=== PATIENT | male | born 1955 | race Caucasian/White ===

== ENCOUNTER → 2022-02-21 08:18 | Outpatient (CLI) | payer MEDICARE, SELFPAY ==
[2022-02-21 09:42] LABS: Chol/HDL Ratio 4.8 (1-3.5); Cholesterol 183 mg/dl (140-200); HDL Cholesterol 38 mg/dl (40-60); Triglycerides 115 mg/dl (30-150); VLDL Cholesterol 23 mg/dL (0-40)
[2022-02-21 09:53] LABS: Direct LDL Cholesterol 108.25 mg/dL (100-129)
== END ==
PROVIDERS: PCP Family Medicine Addiction Medicine; Visit Provider Nurse Practitioner
DX: E78.49 Other hyperlipidemia (principal)
CPT/HCPCS: 36415; 80061

== ENCOUNTER 2023-07-11 19:00 | Emergency (ER) | payer MEDICARE, SELFPAY ==
[2023-07-11 19:20] VITALS: BP 194/95; PULSE 77; RESP 18; TEMP 36.6; O2SAT 97; BMI 27.0
--- NOTE | 2023-07-11 19:26 | ED_ITS ---
Discharge Plan Disposition Patient Disposition: Home, Self-Care Condition: Good Prescriptions Prescriptions: New sulfamethoxazole-trimethoprim [Bactrim DS] 800-160 mg Tablet 1 tab PO BID 14 Days Qty: 28 0RF Referrals Follow up/Referrals: Dulce Isaacs MD [Primary Care Provider] - See instructions Activity Restrictions/Add. Instructions Additional Instructions/Restrictions: Drink plenty of fluids. Take tylenol or ibuprofen for pain or fever. Take the medications as directed. Follow up with your regular doctor. GO TO THE ER FOR ANY WORSENING SYMPTOMS We will culture the urine. That will tell what bacteria is causing your infection and which antibiotics will treat it best. Sometimes the first antibiotic we prescribe turns out to not work against different bacteria. So, make sure you follow up within 3 days if you are not getting better. Clinical Impressions Clinical Impression: UTI (urinary tract infection) Instructions Patient Instructions: Urinary Tract Infection, DI for Urinary Tract Infection (UTI) Discharge ED Provider: Zach Kelly [facility] General Stated complaint: possible kidney infection Time Seen by Provider: 07/11/23 19:26 History of Present Illness Provider Complaint: He states that he has had dysuria, urinary frequency, and low back pain since yesterday. He had a urinary procedure done around 2 months ago at , then he had to have an indwelling f/c for 30 days after that. Since then he has had a uti twice. He now states that his uti symptoms are back again. The last time was treated for a UTI was 1 month ago approx. He denies any fever/chills. Related Data Previous Rx's Medication Instructions Recorded sulfamethoxazole 800 1 tab PO BID 14 days #28 tabs 07/11/23 mg-trimethoprim 160 mg tablet (Bactrim DS) Allergies Allergy/AdvReac Type Severity Reaction Status Date / Time No Known Allergies Allergy Verified 07/11/23 19:42 [facility] Disclaimer: The information contained in this section may have been updated after the patient was seen, as this information can be updated by other users. Social History Smoking Status: Former smoker alcohol intake: never current occupational status: employed Travel in the last 8 weeks: None ROS Obtained: Yes All systems reviewed & no additional complaints except as documented Constitutional Constitutional: Denies chills and Denies fever(s) Eyes Eyes: Denies eye discharge ENT Ears, Nose, Mouth, and Throat: Denies dizziness, Denies otalgia and Denies sore throat Cardiovascular Cardiovascular: Denies chest pain Respiratory Respiratory: Denies shortness of breath, Denies chest congestion, Denies cough, Denies stridor and Denies wheezing Gastrointestinal Gastrointestingal: Denies nausea or vomiting Genitourinary Male Genitourinary: Reports as per HPI, Reports difficulty urinating, Denies testicular pain, Reports urinary frequency and Reports urinary hesitancy Musculoskeletal Musculoskeletal: Reports system reviewed and no additional complaints, except as documented and Denies arthralgias Integumentary/Breasts Skin/Breast: Denies rash Neurologic Neurologic: Denies dizziness and Denies paresthesias Allergic/Immunologic Allergic/Immunologic: Denies wheezing Physical Exam General General appearance: alert and in no apparent distress Head Head exam: atraumatic, normocephalic and normal inspection Eye Eye exam: Present normal appearance, PERRL and EOMI ENT ENT exam: Present normal exam, normal oropharynx, mucous membranes moist, TM's normal bilaterally and normal external ear exam Neck Neck exam: Present normal inspection, full ROM and trachea midline; Absent meningismus or lymphadenopathy Chest Chest inspection: Present normal inspection and symmetric chest wall rise; Absent tenderness Respiratory Respiratory exam: Present normal lung sounds bilaterally; Absent respiratory distress Cardiovascular Cardiovascular exam: Present regular rate and normal rhythm; Absent JVD Abdominal Exam Abdominal exam: Present soft and normal bowel sounds; Absent distention, tenderness or guarding Extremities Exam Extremities exam: Present normal inspection, full ROM and normal capillary refill; Absent calf tenderness Back Exam Back exam: Present normal inspection and full ROM; Absent tenderness, CVA tenderness (R), CVA tenderness (L), muscle spasm, paraspinal tenderness, vertebral tenderness, rashes, sciatic notch tenderness (R), sciatic notch tenderness (L), straight leg raise (R) or straight leg raise (L) Neurological Exam Neurological exam: Present alert and oriented X3 Psychiatric Psychiatric exam: Present normal affect and normal mood Skin Skin exam: Present warm, dry, intact and normal color Lymphatic Lymphatic Findings: no adenopathy Medical Decision Making Medical Records Medical records reviewed: No I reviewed the patient's medical records. Juanito Inquiry Pt receiving controlled substance: No Lab Data Lab results reviewed: Yes I reviewed the patient's lab results.
[2023-07-11 19:42] LABS: Apearance,Urine Clear (Clear); Color,Urine Dark Yellow (Yellow)
[2023-07-11 19:43] LABS: Bilirubin,Urine Negative (Negative); Blood, Urine Negative (Negative); Glucose,Urine (UA) Negative (Negative); Ketones,Urine Negative (Negative); Protein,Urine Negative (Negative); Specific Gravity, Urine 1.015 (1.005-1.030); UTC Leukocyte Esterase,Urine Negative (Negative); UTC Nitrate,Urine Positive (Negative); Urobilinogen,Urine 1 EU/dl (0.2)
[2023-07-11] MEDS: LIDOCAINE 1% 5ML PF VIAL IM (19:51)
[2023-07-11] MEDS: cefTRIAXone 1GM VIAL 1 GM IM (19:51)
[2023-07-11 20:20] VITALS: BP 194/95; PULSE 77; RESP 18; TEMP 36.6; O2SAT 97
== END 2023-07-11 20:20 | disposition home or self-care (01) ==
PROVIDERS: Emergency Provider Nurse Practitioner Family; PCP Family Medicine Addiction Medicine
DX: N39.0 Urinary tract infection, site not specified (principal); B96.89 Other specified bacterial agents as the cause of diseases classified elsewhere; M54.59 Other low back pain; Z87.891 Personal history of nicotine dependence
CPT/HCPCS: 81003; 87086; 96372; 99204; 99212; G0463; J0696

== ENCOUNTER 2024-08-26 21:01 | Emergency (ER) | payer MEDICARE, SELFPAY ==
[2024-08-26 21:04] VITALS: BP 166/95; PULSE 90; RESP 18; TEMP 36.6; O2SAT 100; BMI 25.8
[2024-08-26 21:13] LABS: Microscopic, Urine URINE MICROSCOPIC (MICROSCOPIC)
[2024-08-26 21:14] LABS: Blood, Urine Negative (Negative); Color,Urine YELLOW (Yellow); Glucose,Urine (UA) Negative (Negative); Ketones,Urine TRACE (Negative); Leukocyte Esterase,Urine TRACE (Negative); Nitrate,Urine Negative (Negative); PH,Urine 5.5 (5.0-8.5); Protein,Urine TRACE (Negative); Specific Gravity, Urine >= 1.030 (1.005-1.030); Urobilinogen,Urine 0.2 EU/dl (0.2)
[2024-08-26 21:26] LABS: Bilirubin,Urine 1+ (Negative)
[2024-08-26 21:27] LABS: Appearance,Urine Slightly Cloudy (Clear)
--- NOTE | 2024-08-26 21:36 | ED_ITS ---
Discharge Plan Disposition Patient Disposition: Home, Self-Care Condition: Good Prescriptions Prescriptions: New phenazopyridine 100 mg tablet 200 mg PO Q8H 5 Days Qty: 30 0RF lidocaine HCl [Lidocaine Viscous] 2 % solution 1 applic mucous membrane Q6H PRN (Reason: pain) Qty: 600 0RF No Action sulfamethoxazole-trimethoprim [Bactrim DS] 800-160 mg Tablet 1 tab PO BID 14 Days Qty: 28 0RF Referrals Follow up/Referrals: Dulce Isaacs MD [Primary Care Provider] - See instructions Activity Restrictions/Add. Instructions Additional Instructions/Restrictions: Up with urology and infectious disease. Talk to them about potential epididymo- orchitis and antibiotic treatment to address this, if they are concerned for this. Call your family doctor to establish care for this visit to the emergency department and schedule follow-up within 48 hours to ensure improvement. If you have any worsening of your condition or any other concerning signs or symptoms, return to the emergency department or your primary care doctor for further evaluation. Clinical Impressions Clinical Impression: Dysuria Instructions Patient Instructions: DI for Urinary Tract Infection (UTI), DI for Urinary Tract Infection in Children Print Language Print Language: Cymro Discharge ED Provider: Sam Varela General Adult HPI General Chief complaint: Urogenital-Male Stated complaint: Urinary Pain Time Seen by Provider: 08/26/24 21:09 Mode of Arrival: Ambulatory Source of Information: Patient Description of Symptoms (Recalled from ER Triage Doc. by RN): Pt presents with c/o burning with urination that started yesterday but worse today. pt states he feels like his left testicle is swollen History of Present Illness HPI narrative: Please note that above description of symptoms, in this electronic medical record under categorization of recalled from ER triage doctor by RN are reflective of an initial nursing assessment, however, is not reflective of my full history and physical exam that was personally taken and clarified. Consequentially, this preceding description of symptoms, which may include the patient's categorized chief complaint in the EMR, do not reflect my personal clinical impression, and the ultimate description of history of present illness and patient stated complaints should be deferred to this section of the note. Unless stated otherwise or congruent with this section of the note, additional signs, symptoms, or incongruence should be interpreted as inaccurate with my clinical impression. Related Data Previous Rx's ?Medication ?Instructions ?Recorded sulfamethoxazole 800 1 tab PO BID 14 days #28 tabs 07/11/23 mg-trimethoprim 160 mg tablet (Bactrim DS) lidocaine HCl 2 % mucosal solution 1 applic mucous membrane Q6H PRN 08/26/24 (Lidocaine Viscous) pain #600 mL phenazopyridine 100 mg tablet 200 mg (2 x 100 mg) PO Q8H 5 days 08/26/24 #30 tabs Allergies Allergy/AdvReac Type Severity Reaction Status Date / Time No Known Allergies Allergy Verified 07/11/23 19:42 [facility] Disclaimer: The information contained in this section may have been updated after the patient was seen, as this information can be updated by other users. Social History Smoking Status: Never smoker alcohol intake: never current occupational status: employed Travel in the last 8 weeks?: None Have you lived/traveled outside US in past 30 days?: No Contact w/someone who lives/traveled outside US past 30 days?: No Exposure to someone with infectious disease in past 14 days?: No Do you have a fever (greater than 100.4 F or 38 C)?: No Have you tested positive for COVID-19?: No Exposed to someone with COVID-19 in past 14 days?: No Do you have a sore throat?: No Do you have a cough?: No Do you have any weakness?: No Do you have any diarrhea?: No Are you experiencing any unusual bleeding?: No Do you have any muscle aches/pain?: No Do you have any abdominal pain?: No Are you experiencing loss of taste or smell?: No Other Medical History Have you received the Flu Vaccine for this season: No Have you received the Pneumonia Vaccine: No ROS Obtained: Yes All systems reviewed & no additional complaints except as documented Physical Exam General General appearance: alert Head Head exam: atraumatic and normocephalic Eye Eye exam: Present normal appearance, PERRL and EOMI Neck Neck exam: Present normal inspection, full ROM and trachea midline Respiratory Respiratory exam: Absent respiratory distress, wheezes, stridor, accessory muscle use or prolonged expiratory phase Cardiovascular Cardiovascular exam: Present other (Pulses equal symmetric in upper and lower extremities) Abdominal Exam Abdominal exam: Present soft; Absent distention, tenderness or pulsatile mass exam: Present testicular tenderness (Posteriorly overlying epididymis. Othe rwise normal. AP lie, symmetric in size to the right.) Extremities Exam Extremities exam: Absent edema Neurological Exam Neurological exam: Present alert, oriented X3 and CN II-XII intact; Absent motor sensory deficit Skin Skin exam: Present warm and dry; Absent diaphoresis or erythema Medical Decision Making Medical Records Medical records reviewed: Yes I reviewed the patient's medical records. Screening: Per USPSTF and CDC recommendations, given the prevalence of disease in our region, it is our hospital?s policy to screen for HIV and viral Hepatitis for all patients aged 18 and over and those with ongoing risk factors. Juanito Inquiry Pt receiving controlled substance: No Juanito was queried for this patient: No Vital Signs: 08/26/24 21:04 08/26/24 21:51 Temperature 97.9 F 97.9 F Temperature Source Temporal Artery Scan Oral Pulse Rate 84 Pulse Rate [Right] 90 Respiratory Rate 18 16 Blood Pressure 151/89 H Blood Pressure [Right Arm] 166/95 H Blood Pressure Mean [Right Arm] 118 Blood Pressure Source Automatic Cuff Blood Pressure Source [Right Arm] Automatic Cuff Blood Pressure Position Supine Blood Pressure Position [Right Arm] Sitting 02 Sat by Pulse Oximetry 100 Oxygen Delivery Method Room Air Room Air Lab Data Lab Results 08/26/24 21:08: Urine Color Yellow, Urine Appearance Slightly cloudy, Urine pH 5.5, Ur Specific [place] >= 1.030, Urine Protein Trace, Urine Glucose (UA) Negative, Urine Ketones Trace, Urine Blood Negative, Urine Nitrate Negative, Urine Bilirubin 1+ A, Urine Urobilinogen 0.2, Ur Leukocyte Esterase Trace, Urine RBC 10-20, Urine WBC Tntc, Ur Squamous Epith Cells 50-100, Urine Bacteria 4+, Urine Mucus 4+ Orders (Tests/Meds): ED MEDICATIONS Discontinued Medications Generic Name Dose Route Start Last Admin Trade Name Freq PRN Reason Stop Dose Admin Phenazopyridine HCl 200 mg 08/26/24 21:37 08/26/24 21:41 Phenazopyridine 200mg Tablet PO 08/26/24 21:38 200 mg ONCE ONE Administration ORDERS Category Date Time Status Urinalysis and Microscopic Stat Lab 08/26/24 21:08 Completed Urine Culture Stat Micro 08/26/24 21:08 Received Medical Decision Narrative: 68-year-old male history of chronic urologic complications, urethral stricture status post repair, which failed necessitating intermittent self- catheterization, chronic urinary tract infections presenting with urinary burning. States that it feels like his previous UTIs, but he is on daily fosfomycin per infectious disease and urology at [facility]. Does not remember when his last urinalysis showed, but states that all of his bacteria are usually sensitive to every antibiotic. No fevers or chills, flank pain, purulent drainage. He does state that since 2022, he said intermittent darkening and swelling of his left testicle, unknown if this is the cause or causing his pain. History was obtained via conversation with patient and , outside hospital chart review. On arrival, patient hemodynamically stable, alert, oriented x4, appropriate, GCS 15, moving all extremities spontaneously, pupils equal and reactive to light. Full physical exam performed and significant for clinically well-appearing male in no acute distress. exam normal with the exception of posterior left testicular tenderness. Differential includes UTI, urethritis, orchitis, prostatitis, among others. Patient given phenazopyridine 200 mg. Urinalysis obtained. On independent interpretation, yellow, cloudy, normal pH with no concerns for urinary tract infection. Contaminated sample with lots of squamous cells, white cells, bacteria, mucus, etc. Nitrate negative, trace leukocyte Estrace as it has been on outside hospital chart review. On reevaluation, patient toe resting as he was at baseline. Given patient presentation, workup, history, this most likely represents urethritis versus epididymo-orchitis. Recommended he follow-up with his family doctor, urologist, and infectious disease. Pyridium sent to the pharmacy. Because patient at baseline without signs or symptoms of clinical decompensation, deemed appropriate for discharge. Results were relayed to patient who voiced understanding and were agreeable to outpatient management and follow up. I discussed my clinical impression with patient and answered all questions. At this time, the evidence for any other entities in the differential is insufficient to warrant any further testing or ED observation. This was explained as well. Advisory was given that persistent or worsening symptoms require further evaluation. I confirmed the understanding of this discussion. Corporate Physical Security Supervisor disclaimer Much of this encounter note is an electronic irish moss operator spoken language to printed text. Electronic irish moss operator of the spoken language may permit errors. Although I have reviewed the note, some errors may still exist. Critical Care Critical Care Time Critical Care Time: No
[2024-08-26] MEDS: PHENAZOPYRIDINE 200MG TABLET 200 MG PO (21:41)
[2024-08-26 21:51] VITALS: BP 151/89; PULSE 84; RESP 16; TEMP 36.6; O2SAT 98
[2024-08-26 21:54] LABS: Bacteria,Urine 4+ /lpf; Mucus,Urine 4+ /lpf; Squamous Epithelial Cell,Urine 50-100 #/hpf (0-5); WBC,Urine TNTC #/hpf (0-3)
== END 2024-08-26 21:55 | disposition home or self-care (01) ==
PROVIDERS: Emergency Provider Emergency Medicine; PCP Family Medicine Addiction Medicine
DX: R30.0 Dysuria (principal)
CPT/HCPCS: 81001; 87086; 99284

== ENCOUNTER 2024-11-12 22:26 | Emergency (ER) | payer MEDICARE, SELFPAY ==
--- OUTSIDE RECORDS SUMMARY | 2024-11-12 22:38 | XMS_ITS | Encounter Summary ---
Author Organization [facility] Address [address] [place] [address] Care Team Providers Care Protector Plate Attacher Name Role Phone Dennise Isaacs MD Primary Care Provider [phone] Adwoa Oakes MD Unavailable [phone] Checo Diaz MD Unavailable [phone] Tere Garcia APRN, [facility] Unavailable [phone] Encounter Details Date Type Department Care Team (Late st Contact Info) Description 09/16/2024 Ancillary Procedure [facility] [address] [place] [address] Dennise Isaacs MD [address] [place] [address] Social History Tobacco Use Types Packs/Day Years Used Date Smoking Tobacco: Former Cigarettes 2 26 0 12/05/1974 - 10/23/2000 Passive Smoke Exposure: Past Smokeless Tobacco: Never Comments:Quit due to issues with throat Alcohol Use Standard Drinks/Week Comments Not Currently 0 (1 standard drink = 0.6 oz pur e alcohol) PHQ-2 Answer Date Recorded Patient Health Questionnaire-2 Score 0 08/17/2024 PHQ-9 Answer Date Recorded Patient Health Questionnaire-9 Score 0 08/17/2024 CAGE ASSESSMENT Answer Date Recorded Cage unable to access Not on file 12/28/2022 Cage max number of drinks Not on file 2022 Cage Beverages a week Not on file 12/28/2022 Have you ever felt you should CUT down on your d rinking? 0 12/28/2022 Have you been ANNOYED by people criticizing your drinking? 0 12/28/2022 Have you felt GUILTY about your drinking? 0 12/28/2022 Have you had a drink first t eddie in the morning (E[employer] ARTIST) to steady your nerves or to get rid of a hangover? 0 12/28/2022 CAGE Questionnaire Score 0 023 PHQ-2A Answer Date Recorded Patient Health Questionnaire-2 Score 0 01/05/2023 Sex and Gender Information Value Date Recorded Sex Assigned at Male 05/28/2022 6:07 AM EST Legal Sex Male 7:58 PM EDT Gender Identity Male 05/28/2022 6:07 AM EST Sexual Orientation Straight 05/28/2022 6: 07 AM EST documented as of this encounter Plan of Treatment Upcoming Encounters Date Type Department Care Team (Late st Contact Info) Description 11/22/2024 3:00 PM EDT Office Visit [facility] [address] [place] [address] Asha Briseno, DIRECTOR OF ASSISTED LIVING [address] [place] [id number] 11/24/2024 8:00 AM EDT Office Visit [facility] [address] [place] [address] Lamar Arreaga, BAM, DNP [address] [place] [address] documented as of this encounter Procedures Procedure Name Priority Date/Time Associated Diagnosis Comments CT ABDOMEN PELVIS W IV CONTRAST 09/16/2024 9:20 AM EDT documented in this encounter Results * CT Abdomen Pelvis w IV Contrast (09/16/2024 9:20 AM EDT) Anatomical Region Laterality Modality Abdomen, Pelvis Computed Tomogra phy 09/16/2024 9:20 AM EDT Narrative 09/16/2024 10:03 AM EDT [address] [address] Patient Name: KHUSHBOO MICHAEL Patient : 1955 Patient Ordering Provider: DENNISE ISAACS EXAM DATE: 09/16/2024 EXAM: CT A/P WITH CONTRAST CLINICAL INFORMATION: Unexpected weight loss. Dysuria TECHNIQUE: No POC testing for eGFR was performed due to absence of risk factors. Multiple axial CT images of the abdomen and pelvis were obtained after injection of 100 mL Omnipaque 350 (1 x 100 mL bottle of NDC [address]-94). None was wasted and discarded. Bowel was opacified with oral contrast. COMPARISON: None. FINDINGS ON CT ABDOMEN: LOWER THORAX: Lung bases are clear. No obvious cardiac abnormality. UPPER ABDOMINAL ORGANS: Liver, gallbladder, spleen, pancreas, adrenals and both kidneys are normal. BOWEL AND MESENTERY: Stomach, small bowel and colon are normal. No mesenteric lymphadenopathy or peritoneal free fluid. RETROPERITONEUM: Aorta, IVC and their branches are patent and normal. No retroperitoneal lymphadenopathy. ABDOMINAL WALL AND SKELETAL STRUCTURES: Tiny fat-containing umbilical hernia FINDINGS ON CT PELVIS: PELVIC CAVITY: Urinary bladder and rectosigmoid are normal. No pelvic or inguinal lymphadenopathy, mass or fluid. MUSCULOSKELETAL STRUCTURES: Normal. COMBINED IMPRESSION: No evidence of mass, fluid collection, or inflammation Interpreted By: Harris Taylor MD Procedure Note Harris Taylor MD - 09/16/[address] [address] Patient Name: KHUSHBOO MICHAEL Patient : 1955 Patient Ordering Provider: DENNISE ISAACS EXAM DATE: 09/16/2024 EXAM: CT A/P WITH CONTRAST CLINICAL INFORMATION: Unexpected weight loss. Dysuria TECHNIQUE: No POC testing for eGFR was performed due to absence of risk factors. Multiple axial CT images of the abdomen and pelvis were obtained after injection of 100 mL Omnipaque 350 (1 x 100 mL bottle of NDC [id number]). None was wasted and discarded. Bowel was opacified with oral contrast. COMPARISON: None. FINDINGS ON CT ABDOMEN: LOWER THORAX: Lung bases are clear. No obvious cardiac abnormality. UPPER ABDOMINAL ORGANS: Liver, gallbladder, spleen, pancreas, adrenals and both kidneys are normal. BOWEL AND MESENTERY: Stomach, small bowel and colon are normal. No mesenteric lymphadenopathy or peritoneal free fluid. RETROPERITONEUM: Aorta, IVC and their branches are patent and normal. No retroperitoneal lymphadenopathy. ABDOMINAL WALL AND SKELETAL STRUCTURES: Tiny fat-containing umbilical hernia FINDINGS ON CT PELVIS: PELVIC CAVITY: Urinary bladder and rectosigmoid are normal. No pelvic or inguinal lymphadenopathy, mass or fluid. MUSCULOSKELETAL STRUCTURES: Normal. COMBINED IMPRESSION: No evidence of mass, fluid collection, or inflammation Interpreted By: Harris Taylor MD Dennise Isaacs MD IMG CT PROCEDURES Final Result documented in this encounter Visit Diagnoses Not on filedocumented in this encounter Additional Health Concerns Assessment Noted Time PHQ-9 Depression Total Score: 0 08/18/19 25 11:17 AM EDT A fall risk assessment has been complete d for the patient 08/22/2024 1:31 PM EDT A Body Mass Index follow-up plan has been documented for the patient 08/30/2024 4:57 PM EDT documented as of this encounter Care Teams Protector Plate Attacher Relationship Specialty Start Date End Date Dennise Isaacs MD [address] [place] [address] PCP - General 01/08/22 Adwoa Oakes MD [address] [place] [id number] Medical Oncologist Hematology and Oncology 06/30/23 Checo Diaz MD [address] [place] [address] Consulting Physician Urology 08/17/23 GarciaTere kelly APRN, DNP [address] [place] [address] Nurse Practitioner Urology 02/17/24 documented as of this encounter
--- OUTSIDE RECORDS SUMMARY | 2024-11-12 22:38 | XMS_ITS | Clinical Summary ---
Author Organization [facility] Address [address] [place] [address] Care Team Providers Care Sailing Officer Name Role Phone Dulce Isaacs MD Primary Care Provider [phone] Allergies Active Allergy Reactions Criticality Noted Date Comments Lisinopril Cough Low 11/25/2022 Statins Other Low 09/08/2022 Medications PEG 3350 (Glycolax, Miralax) 4 gram packet Take 17 g every day by oral route. Active alfuzosin (Uroxatral) 10 MG 24 hr tablet Take 1 tablet by mouth 1 (one) time each day. Active amoxicillin-clavula colleen (Augmentin) 875-125 MG tablet TAKE 1 TABLET BY MOUTH EVERY 12 HOURS FOR 7 DAYS 5 Active cefdinir (Omnicef) 300 MG capsule TAKE 1 CAPSULE BY MOUTH EVERY 12 HOURS FOR 7 DAYS 4 Active ciprofloxacin (Cipro) 500 MG tablet TAKE 1 TABLET BY MOUTH EVERY 12 HOURS FOR 7 DAYS 5 Active doxycycline (Vibramycin) 100 MG capsule TAKE 1 CAPSULE BY MOUTH TWICE DAILY WITH AT LEAST 8 OZ OF WATER. DO NOT LIE DOWN FOR 30 MINUTES AFTER TAKING 4 Active ezetimibe (Zetia) 10 MG tablet Take 1 tablet by mouth 1 (one) time each day. 5 Active fosfomycin (Monurol) 3 g packet TAKE 3 GRAMS BY MOUTH ONCE WEEKLY 5 Active hydrOXYzine HCl (Atarax) 25 MG tablet TAKE 1 TABLET BY MOUTH EVERY DAY NEEDED FOR SLEEP 4 Active losartan (Cozaar) 25 MG tablet Take 25 mg by mouth. Active metFORMIN XR (Glucophage-XR) 500 MG 24 hr tablet Take 1 tablet by mouth 1 (one) time each day. 4 Active methenamine hippurate (Hiprex) 1 g tablet Take 1 g by mouth 2 (two) times a day. 4 Active omeprazole (PriLOSEC) [address] capsule Take 1 tablet by mouth 1 (one) time each day. 9 Active ondansetron ODT (Zofran-ODT) 8 MG disintegrating tablet DISSOLVE 1 TABLET ON THE TONGUE THREE TIMES DAILY FOR 5 DAYS NEEDED Active phenazopyridine (Pyridium) 200 MG tablet TAKE 1 TABLET BY MOUTH THREE TIMES DAILY AFTER MEALS FOR 2 DAYS 5 Active Plecanatide (Trulance) 3 MG tablet Take 1 tablet every day by oral route. 5 Active simvastatin (Zocor) 10 MG tablet Take 1 tablet by mouth 1 (one) time each day. Active sulfamethoxazole-tr imethoprim (Bactrim DS) 800-160 MG tablet Take 1 tablet by mouth 2 (two) times a day. for 7 days 4 Active tamsulosin (Flomax) 0.4 MG 24 hr capsule Take 1 capsule every day by oral route. 5 Active Trospium Chloride ER 60 MG capsule sustained-release 24 hr Take 1 capsule by mouth 1 (one) time each day. 5 Active Family History Medical History Relation Name Comments Cancer Father Heart disease Father Hypertension Father Cancer Mother Heart disease Mother Hypertension Mother Relation Name Status Comments Father Mother Social History Tobacco Use Types Packs/Day Years Used Date Smoking Tobacco: Former Cigarettes 2 22 1 976 - 1998 Smokeless Tobacco: Never Tobacco Cessation:Counseling Given: Not Answered Alcohol Use Standard Drinks/Week Comments Never 0 (1 standard drink = 0.6 oz pur e alcohol) Sex and Gender Information Value Date Recorded Sex Assigned at Not on file Legal Sex Male 9:17 AM EDT Gender Identity Not on file Sexual Orientation Not on file Last Filed Vital Signs Vital Sign Reading Time Taken Comments Blood Pressure 128/78 08/10/2024 9:55 AM EDT Pulse 65 08/10/2024 9:55 AM EDT Temperature 35.6 C (96 F) 08/10/2024 9:55 AM EDT Respiratory Rate - - Oxygen Saturation - - Inhaled Oxygen Concentration - - Weight 80.3 kg (177 lb) 08/10/2024 9:55 AM EDT Height - - Body Mass Index - - Plan of Treatment Upcoming Encounters Date Type Department Care Team (Late st Contact Info) Description 12/01/2024 12:15 PM EDT External Surgery [facility] [address] [address] Greg Baldwin MD [address] [place] [address] [phone] 01/19/2025 12:00 PM EDT External Surgery [facility] [address] [place] [id number] Greg Baldwin MD [address] [place] [address] [phone] 02/17/2025 4:00 PM EST Telemedicine [facility] [address] [place] [id number] Greg Baldwin MD [address] [place] [phone] Health Maintenance Due Date Last Done Comments CT Colonography 1955 Colonoscopy 1955 Colorectal Cancer Screening 1955 FIT-DNA (Cologuard) 1955 FIT 1955 FOBT 1955 Medicare Annual Wellness (AWV) 1955 Sigmoidoscopy 1955 Hepatitis B Screening 1974 DTaP/Tdap/Td Vaccines (1 - Tdap) 12/18/1975 Pneumococcal Vaccine: 50+ Years (1 of 1 - PCV) 2006 Zoster Vaccines (1 of 2) 2006 COVID-19 Vaccine (4 - season) 2023 03/18/2021, 07/30/2020, 07/02/2020 Depression Risk Screening 04/06/2024 Fall Risk Screening 04/06/2024 SDOH Screening 04/06/2024 Influenza Vaccine (#1) 2024 , 01/12/2023, 12/16/2021, Additional history exists Diabetes Screening 11/12/2027 11/11/2024, 0 07/11/2024, 07/11/2024, Additional history exists Lipid Panel 07/11/2029 07/11/2024 Hepatitis C Screening Completed 01/11/2024 HIB Vaccines Aged Out No longer eligi ble based on patient's age to complete this topic HPV Vaccines Aged Out No longer eligi ble based on patient's age to complete this topic Hepatitis A Vaccines Aged Out No long er eligible based on patient's age to complete this topic Hepatitis B Vaccines Aged Out No long er eligible based on patient's age to complete this topic IPV Vaccines Aged Out No longer eligi ble based on patient's age to complete this topic Meningococcal B Vaccine Aged Out No l onger eligible based on patient's age to complete this topic Meningococcal Vaccine Aged Out No kentrell melecio eligible based on patient's age to complete this topic Rotavirus Vaccines Aged Out No longer eligible based on patient's age to complete this topic Procedures Procedure Name Priority Date/Time Associated Diagnosis Comments CMP COMPREHENSIVE METABOLIC PANEL Routine 11/11/2024 2:16 PM EDT CBC NO DIFF (HEMOGRAM) Routine 2:16 PM EDT URINE CULTURE Routine 11/11/2024 2:14 PM EDT from Last 3 Months Results * CBC (11/11/2024 2:16 PM EDT) WBC 7.3 4.0 - 10.8 x10(3)/ul 11/11/2024 2:31 PM EDT [facility] Heme Coag UA SS RBC 4.59 4.37 - 5.74 x10(6)/ul 11/11/2024 2:31 PM EDT [facility] Heme Coag UA SS HGB 13.8 13.0 - 17.5 Gram/dL 11/11/2024 2:31 PM EDT [facility] Heme Coag UA SS Hematocrit 40.3 38.0 - 51.0 % 11/11/2024 2:31 PM EDT [facility] Heme Coag UA SS MCV 88.0 79.0 - 92.2 fL 11/11/2024 2:31 PM EDT [facility] Heme Coag UA SS MCH 30.1 25.6 - 32.2 pg 11/11/2024 2:31 PM EDT [facility] Heme Coag UA SS MCHC 34.2 32.3 - 36.5 Gram/dL 11/11/2024 2:31 PM EDT [facility] Heme Coag UA SS RDW 13.2 11.0 - 15.5 % 11/11/2024 2:31 PM EDT [facility] Heme Coag UA SS Platelets 284 140 - 420 x10(3)/ul 11/11/2024 2:31 PM EDT [facility] Heme Coag UA SS MPV 8.7 6.5 - 12.0 fL 11/11/2024 2:31 PM EDT [facility] Heme Coag UA SS Blood Venous Draw / Unknown 11/11/2024 2:16 PM EDT 11/11/2024 2:25 PM EDT [facility] - 11/11/2024 2:31 PM ED[place] [address] Greg Baldwin MD LAB BLOOD ORDERABLES Final Result [facility] [address] [place] [address], [facility] Heme Coag UA SS Pathology Department [address] [place] [address] * (ABNORMAL) Comprehensive metabolic panel (11/11/2024 2:16 PM EDT) Sodium 137 136 - 145 mmol/L 11/11/2024 2:53 PM EDT [facility] CH Remisol 2.0 SS Potassium 4.0 3.5 - 5.1 mmol/L 11/11/2024 2:53 PM EDT L CH Remisol 2.0 SS Chloride 104 98 - 110 mmol/L 11/11/2024 2:53 PM EDT [facility] CH Remisol 2.0 SS CO2 26 21 - 31 mmol/L 11/11/2024 2:53 PM EDT [facility] CH Remisol 2.0 SS Anion Gap 7.0 2.0 - 11.0 11/11/2024 2:53 PM EDT [facility] CH Remisol 2.0 SS Calcium 9.3 8.6 - 10.2 mg/dL 11/11/2024 2:53 PM EDT [facility] CH Remisol 2.0 SS Glucose 94 74 - 109 mg/dL 11/11/2024 2:53 PM EDT [facility] CH Remisol 2.0 SS BUN 12 7 - 25 mg/dL 11/11/2024 2:53 PM EDT [facility] CH Remisol 2.0 SS Creatinine 1.31(H) 0.70 - 1.30 mg/dL 11/11/2024 2:53 PM EDT [facility] CH Remisol 2.0 SS BUN/Creatinine Ratio 9.2 6.0 - 22.0 11/11/2024 2:53 PM EDT L CH Remisol 2.0 SS Albumin 4.8 3.5 - 5.2 Gram/dL 11/11/2024 2:53 PM EDT [facility] CH Remisol 2.0 SS Total Protein 7.5 6.4 - 8.9 Gram/dL 11/11/2024 2:53 PM EDT [facility] CH Remisol 2.0 SS A/G Ratio 1.8 1.0 - 2.5 11/11/2024 2:53 PM EDT L CH Remisol 2.0 SS Alkaline Phosphatase 71 34 - 104 Units/Lite r 11/11/2024 2:53 PM EDT [facility] CH Remisol 2.0 SS ALT (SGPT) 35(H) <=32 Units/Lite r 11/11/2024 2:53 PM EDT [facility] CH Remisol 2.0 SS AST 25 13 - 39 Units/Lite r 11/11/2024 2:53 PM EDT L CH Remisol 2.0 SS Total Bilirubin 0.5 0.3 - 1.0 mg/dL 11/11/2024 2:53 PM EDT [facility] CH Remisol 2.0 SS Globulin, Total 2.7 2.0 - 3.5 Gram/dL 11/11/2024 2:53 PM EDT [facility] CH Remisol 2.0 SS EGFR 60 >=60 mL/min/1.7 3m2 11/11/2024 2:53 PM EDT [facility] CH Remisol 2.0 SS Comment:eGFR calculation per formed using the CKD-EPI 2020 equation (race variable excluded) Blood Venous Draw / Unknown 11/11/2024 2:16 PM EDT 11/11/2024 2:25 PM EDT [facility] - 11/11/2024 2:53 PM EDT Performed by [address] [address] Greg Baldwin MD LAB BLOOD ORDERABLES Final Result Performing Organization Address City/State/[facility] Co de Phone Number [facility] [address] [place] [address], [facility] Remisol 2.0 SS Pathology Department [address] [place] [address] * Urine culture (11/11/2024 2:14 PM EDT) Urine 11/11/2024 2:14 PM EDT 11/11/2024 5:35 PM EDT [facility] - 11/12/2024 12:57 PM EDT Patient: KHUSHBOO MICHAEL : 1955 Sex: Male Microbiology - Bacteriology PROCEDURE: Culture Urine [R1] COLLECTED DATE/TIME: 11/11/2024 14:14 EDT SOURCE: U CleanCatch START DATE/TIME: 11/11/2024 17:35 EDT BODY SITE: ORDERING PHYSICIAN GREG BALDWIN MD- FREE TEXT SOURCE: [facility] FINAL REPORTS Final Report [] Verified Date/Time: 11/12/2024 12:57 EDT No growth Performing Locations R1: This test was performed at: [facility], Pathology Department, [address] [place] [address], [place], [address]- , [place], [place] Greg Baldwin MD LAB MICROBIOLOGY - GENERAL ORDERABLES Final Result [facility] [address] [place] [address], [place] from Last 3 Months Insurance MEDICARE Member Subscriber Plan / Payer (Ef fective 2021-Present) Name:Khushboo Michael Member ID:[id number] Relation to Subscriber:Self Name:Khushboo Michael Subscriber ID:[id number] Payer ID:[id number] Group ID:Not on file Type:Medicare Address: [facility] [place] [id number] [facility] Care Teams Sailing Officer Relationship Specialty Start Date End Date Dulce Isaacs MD [address] [place] [address] PCP - General Family Medicine 04/21/24
--- OUTSIDE RECORDS SUMMARY | 2024-11-12 22:38 | XMS_ITS | Clinical Summary ---
Author Organization [facility] Address [address] [place] [address] Care Team Providers Care Oiler And Greaser Name Role Phone Dulce Isaacs MD Primary Care Provider [phone] Allergies No known active allergies Medications omeprazole (priLOSEC) 40 MG capsule Take by mouth. Active alfuzosin (UROXATRAL) 10 MG 24 hr tablet Take 1 tablet by mouth Daily. Active losartan (COZAAR) 25 MG tablet Take 1 tablet by mouth. Active metFORMIN ER (GLUCOPHAGE-XR) 500 MG 24 hr tablet Take 1 tablet by mouth Daily. 02/24/2024 Active Social History Tobacco Use Types Packs/Day Years Used Date Smoking Tobacco: Former Smokeless Tobacco: Former Quit: 12/16/1996 Alcohol Use Standard Drinks/Week Comments No 0 (1 standard drink = 0.6 oz pur e alcohol) Abuse Screen Answer Date Recorded Feels Unsafe at Home or Work/School no 05/05/2024 Feels Threatened by Someone no 04/08 Does Anyone Try to Keep You From Having Contact with Others or Doing Things Outside Your Home? no 05/05/2024 Physical Signs of Abuse Present no 05/05/2024 Sex and Gender Information Value Date Recorded Sex Assigned at Not on file Legal Sex Male 2:32 PM EDT Gender Identity Not on file Sexual Orientation Not on file Last Filed Vital Signs Vital Sign Reading Time Taken Comments Blood Pressure 146/85 05/05/2024 3:58 PM EST Pulse 88 05/05/2024 3:41 PM EST Temperature 36.5 C (97.7 F) 05/05/2024 1:32 PM EST Respiratory Rate 16 05/05/2024 3:41 PM EST Oxygen Saturation 98% 05/05/2024 3:41 PM EST Inhaled Oxygen Concentration - - Weight 83.5 kg (184 lb) 05/05/2024 1:32 PM EST Height 172.7 cm (5' 8 ) 05/05/2024 1:32 PM EST Body Mass Index 27.98 05/05/2024 1:32 PM EST Plan of Treatment Health Maintenance Due Date Last Done Comments COLOGUARD 2001 COLON CANCER SCREENING 5 YEA R SIGMOIDOSCOPY 2001 CT COLONOGRAPHY 2001 FECAL OCCULT BLOOD TEST 2001 FIT Testing (1 year) 2001 ANNUAL WELLNESS VISIT 12/16/2016 COVID-19 Vaccine (2023-2 5 season) 2023 03/18/2021, 07/30/2020, 07/02/2020 INFLUENZA VACCINE 01/04/2025 02/24/2024, , 12/16/2021, Additional history exists TDAP/TD VACCINES (2 - Td or Tdap) 06/08/2031 022 COLONOSCOPY 01/07/2032 01/06/2022 COLORECTAL CANCER SCREENING 01/07/2032 Pneumococcal Vaccine 50+ Completed 12/16/2021 ZOSTER VACCINE Completed 02/25/2023, 09/12/2022 HEPATITIS C SCREENING Completed 01/11/2024 , 01/11/2024, 12/28/2022 AAA SCREEN ONCE Completed 05/05/2024, 09/2023, 05/12/2023 Procedures Procedure Name Priority Date/Time Associated Diagnosis Comments CT ABDOMEN PELVIS WO CONTRAST STAT 05/05/2024 2:42 PM EST from Last 3 Months or Most Recently Relevant to Health Maintenance Results * CT Abdomen Pelvis Without Contrast (05/05/2024 2:42 PM EST) Anatomical Region Laterality Modality Abdomen, Pelvis N/A Computed Tomogra phy 05/05/2024 2:55 PM EST Impressions 05/05/2024 3:00 PM EST Impression: 1.No acute abnormality identified within the abdomen or pelvis. 2.No hydronephrosis or urinary tract calculi identified. 3.Additional findings as detailed above. Electronically Signed: Jose Dudley MD 05/05/2024 3:00 PM EST Workstation ID: [id number] [facility] 05/05/2024 3:[address] ABDOMEN PELVIS WO CONTRAST Date of Exam: 05/05/2024 2:41 PM EST Indication: Flank pain. Comparison: None available. Technique: Axial CT images were obtained of the abdomen and pelvis without the administration of contrast. Reconstructed coronal and sagittal images were also obtained. Automated exposure control and iterative construction methods were used. Findings: Liver: The liver is unremarkable in morphology. Evaluation for focal liver lesions is limited without IV contrast. No biliary dilation is seen Gallbladder: Unremarkable. Pancreas: Unremarkable. Spleen: Unremarkable. Adrenal glands: Unremarkable. Genitourinary tract: Kidneys are unremarkable. No hydronephrosis is seen. No urinary tract calculi are seen. The visualized portions of the ureters, urinary bladder, and prostate gland appear unremarkable. There may be surgical changes of TURP. Gastrointestinal tract: Limited evaluation of the hollow viscera due to lack of IV contrast administration. There is no evidence of bowel obstruction Appendix: No findings to suggest acute appendicitis. Other findings: No free air or free fluid. No pathologically enlarged lymph nodes are seen. Vascular calcifications are present. Bones and soft tissues: No acute or suspicious osseous or soft tissue lesion is identified. Lung bases: The visualized lung bases are clear. Procedure Note Jose Dudley MD - 05/05/2024 CT ABDOMEN PELVIS WO CONTRAST Date of Exam: 05/05/2024 2:41 PM EST Indication: Flank pain. Comparison: None available. Technique: Axial CT images were obtained of the abdomen and pelvis withoutthe administration of contrast. Reconstructed coronal and sagittal imageswere also obtained. Automated exposure control and iterative constructionmethods were used. Findings: Liver: The liver is unremarkable in morphology. Evaluation for focal liverlesions is limited without IV contrast. No biliary dilation is seen Gallbladder: Unremarkable. Pancreas: Unremarkable. Spleen: Unremarkable. Adrenal glands: Unremarkable. Genitourinary tract: Kidneys are unremarkable. No hydronephrosis is seen.No urinary tract calculi are seen. The visualized portions of the ureters,urinary bladder, and prostate gland appear unremarkable. There may besurgical changes of TURP. Gastrointestinal tract: Limited evaluation of the hollow viscera due tolack of IV contrast administration. There is no evidence of bowelobstruction Appendix: No findings to suggest acute appendicitis. Other findings: No free air or free fluid. No pathologically enlargedlymph nodes are seen. Vascular calcifications are present. Bones and soft tissues: No acute or suspicious osseous or soft tissuelesion is identified. Lung bases: The visualized lung bases are clear. IMPRESSION: Impression: 1.No acute abnormality identified within the abdomen or pelvis. 2.No hydronephrosis or urinary tract calculi identified. 3.Additional findings as detailed above. Electronically Signed: Jose Dudley MD 05/05/2024 3:00 PM EST Workstation ID: [id number] Joelle Everett PA-C IMG CT ORDERABLES Final Result from Last 3 Months or Most Recently Relevant to Health Maintenance Insurance MEDICARE A & B [facility] [employer] Care Teams Oiler And Greaser Relationship Specialty Start Date End Date Dulce Isaacs MD [address] [facility] [address] [place] [address] PCP - General Family Medicine 05/05/24
--- OUTSIDE RECORDS SUMMARY | 2024-11-12 22:38 | XMS_ITS | Encounter Summary ---
Author Organization [facility] Address [address] [place] [address] Care Team Providers Care Tarring Machine Operator Name Role Phone Dulce Isaacs MD Primary Care Provider [phone] Adwoa Oakes MD Unavailable [phone] Checo Diaz MD Unavailable [phone] Tere Garcia APRN, DNP Unavailable [phone] Reason for Visit * Reason Comments Med Refill Encounter Details Date Type Department Care Team (Late st Contact Info) Description 08/15/2024 Refill [facility] [address] [place] [address] Tere Garcia APRN, DNP [address] [place] [address] Social History Tobacco Use Types Packs/Day Years [...] drink first t eddie in the morning (EYE-PET NUTRITION SPECIALIST) to steady your nerves or to get [...] AM EST documented as of this encounter Functional Status * Over the past 2 weeks, how often have you been bothered by any of the following problems? Question Answer Date of Assessment Author Little interest or pleasure in doing things Not at all 08/17/2024 11:17 AM Tunde Kim Feeling down, depressed, or hopeless Not at all 08/17/2024 11:17 AM Tunde Kim Patient Health Questionnaire -2 Score 0 08/17/2024 11:17 AM Tunde Kim * Question Answer Date of Assessment Author Trouble falling or staying asleep, or sleeping too much Not at all 08/17/2024 11:17 AM Norris Batista Feeling tired or having miguelina le energy Not at all 08/17/2024 11:17 AM Tunde Kim Poor appetite or overeating Not at all 08/17/2024 11 :17 AM Norris Kim Feeling bad about yourself - or that you are a failure or have let yourself or your family down Not at all 08/17/2024 11:17 AM Norris Lopez Trouble concentrating on thi ngs, such as reading the newspaper or watching television Not at all 08/17/2024 11:17 AM Tunde Kim Moving or speaking so slowly that other people could have noticed? Or the opposite - being so fidgety or restless that you have been moving around a lot more than usual. Not at all 08/17/2024 11:17 AM EDT Tunde Garrison Thoughts that you would be better off or hurting yourself in some way Not at all 08/17/2024 11:[address] Patient Health Questionnaire -9 Score 0 08/17/2024 11:17 AM EDT Tunde Garrison documented as of this encounter Miscellaneous Notes * Telephone Encounter - Kaveh Clifford, PharmD - 08/15/2024 3:49 PM EDT Refill request does not meet protocol. Sending to clinic for review. Additional info: Medication was not addressed in last note. Please review. documented in this encounter Plan of Treatment Upcoming Encounters Date Type Department Care Team (Late st Contact Info) Description 11/22/2024 3:00 PM EDT Office Visit [facility] [address] [place] [phone] Asha Briseno APRN [address] [facility] [address] [place] [phone] 11/24/2024 8:00 AM EDT Office Visit [facility] [address] [place] [address] Lamar Arreaga APRN, DNP [address] [place] [address] documented as of this encounter Visit Diagnoses Not on filedocumented in this encounter Additional Health Concerns Assessment Noted Time PHQ-9 Depression Total Score: 0 06/22/19 2:25 PM EDT A fall risk assessment has been complete d for the patient 07/26/2024 9:17 AM EDT A Body Mass Index follow-up plan has been documented for the patient 06/28/2024 12:12 PM EDT documented as of this encounter Care Teams Tarring Machine Operator Relationship Specialty Start Date End Date Dulce Isaacs MD [address] [facility] [place] [address] PCP - General 01/08/22 Adwoa Oakes MD [address] [facility] [address]nd [place] [address] Medical Oncologist Hematology and Oncology 06/30/23 Checo Diaz MD [address] [address] Consulting Physician Urology 08/17/23 Tere Garcia, SUIT MAKER, DNP [address] [address] Nurse Practitioner Urology 02/17/24 documented as of this encounter
--- OUTSIDE RECORDS SUMMARY | 2024-11-12 22:38 | XMS_ITS ---
Author Organization Unknown Medications Date Medication Dosage DosageUnit StartDate StopDate StopReason Active DoseQuantity DoseUnit Dispense DispenseUnit Refills NdcCode DrugCode PharmacyId IsPrescription MappedMedication Srcstatus Custom 09/26 00:00 :00 Alfuzosin HCl ER 10 MG Tablet Extended Release 24 Hour 1 90 3 [id number] 901 P Taking 06/09 00:00 :00 Alfuzosin HCl ER 10 MG Tablet Extended Release 24 Hour 1 90 3 [id number] 901 P Taking 04/08 00:00 :00 Alfuzosin HCl ER 10 MG Tablet Extended Release 24 Hour 1 90 3 [id number] 901 P Taking 09/26 00:00 :00 Amoxicillin 875 MG Tablet 08/06/2021 00:00:00 1 28 Tablet 0 14789 226 401 P Taking 06/09 00:00 :00 Amoxicillin 875 MG Tablet 08/06/2021 00:00:00 1 28 Tablet 0 75110 226 401 P Taking 04/08 00:00 :00 Amoxicillin 875 MG Tablet 08/06/2021 00:00:00 1 28 Tablet 0 27112 226 401 P Taking 09/26 00:00 :00 Amoxicillin -Pot Clavulanate 875-125 MG Tablet 09/26/2024 00:00:00 1 14 Tablet 0 51569 227 534 P Start 09/26 00:00 :00 Amoxicillin -Pot Clavulanate 875-125 MG Tablet 06/13/2024 00:00:00 1 14 Tablet 0 86745 227 534 P Taking 06/13 00:00 :00 Amoxicillin -Pot Clavulanate 875-125 MG Tablet 06/13/2024 00:00:00 1 14 Tablet 0 08805 227 534 P Refill 06/13 00:00 :00 Amoxicillin -Pot Clavulanate 875-125 MG Tablet 06/13/2024 00:00:00 1 14 Tablet 0 11505 227 534 P Start 09/26 00:00 :00 Ciprofloxac in HCl 500 MG Tablet 04/08/2024 00:00:00 1 14 Tablet 0 32929 992 801 P Taking 06/09 00:00 :00 Ciprofloxac in HCl 500 MG Tablet 04/08/2024 00:00:00 1 14 Tablet 0 86676 992 801 P Taking 04/08 00:00 :00 Ciprofloxac in HCl 500 MG Tablet 04/08/2024 00:00:00 1 14 Tablet 0 08361 992 801 P Start 09/26 00:00 :00 Fosfomycin Tromethamin e 3 GM Packet 06/09/2024 00:00:00 1 1 0 6436066 4 957 P Taking 06/09 00:00 :00 Fosfomycin Tromethamin e 3 GM Packet 06/09/2024 00:00:00 1 1 0 2383968 4 957 P Start 09/26 00:00 :00 metFORMIN HCl ER 500 MG Tablet Extended Release 24 Hour 04/23/2020 00:00:00 1 180 Tablet 1 [id number] 101 Taking 06/09 00:00 :00 metFORMIN HCl ER 500 MG Tablet Extended Release 24 Hour 04/23/2020 00:00:00 1 180 Tablet 1 81210863 101 Taking 04/08 00:00 :00 metFORMIN HCl ER 500 MG Tablet Extended Release 24 Hour 04/23/2020 00:00:00 1 180 Tablet 1 [id number] 101 Taking 09/26 00:00 :00 PriLOSEC 40MG Enteric Coated Capsule 1 90 3 [id number] 331 Taking 06/09 00:00 :00 PriLOSEC 40MG Enteric Coated Capsule 1 90 3 [id number] 331 Taking 04/08 00:00 :00 PriLOSEC 40MG Enteric Coated Capsule 1 90 3 [id number] 331 Taking 09/26 00:00 :00 Pyridium 200 MG Tablet 06/09/2024 00:00:00 1 6 0 [id number] 0 201 P Taking 06/09 00:00 :00 Pyridium 200 MG Tablet 06/09/2024 00:00:00 1 6 0 [id number] 0 201 P Start
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
[2024-11-12 22:45] VITALS: BP 140/85; PULSE 75; RESP 16; TEMP 36.9; O2SAT 98; BMI 25.8
--- NOTE | 2024-11-12 22:50 | ED_ITS ---
Discharge Plan Disposition Patient Disposition: Home, Self-Care Condition: Good Prescriptions Prescriptions: No Action phenazopyridine 100 mg tablet 200 mg PO Q8H 5 Days Qty: 30 0RF lidocaine HCl [Lidocaine Viscous] 2 % solution 1 applic mucous membrane Q6H PRN (Reason: pain) Qty: 600 0RF sulfamethoxazole-trimethoprim [Bactrim DS] 800-160 mg Tablet 1 tab PO BID 14 Days Qty: 28 0RF Referrals Follow up/Referrals: Dulce Isaacs MD [Primary Care Provider, Family Practice] - See instructions Activity Restrictions/Add. Instructions Additional Instructions/Restrictions: Return to the emergency department if needed. Clinical Impressions Clinical Impression: Foreign body in ear Print Language Print Language: Barbadian Discharge ED Provider: Kimberly Collins Adult HPI General Chief complaint: Recheck/Abnormal Lab/Rx Stated complaint: hearing aid stuck in right ear Time Seen by Provider: 11/12/24 22:50 Mode of Arrival: Ambulatory Source of Information: Patient Description of Symptoms (Recalled from ER Triage Doc. by RN): pt presents to the ed for evaluation of rubber piece of hearing aid stuck in his right ear. Pt reports to pulling out prior to going to bed and the whole hearing aid did no come out. Denies no other complaints at this time. History of Present Illness HPI narrative: Patient is an otherwise healthy 68-year-old male who presented to the emergency department after a piece of his hearing aid got stuck in his right ear. Patient has no other complaints at this time. Related Data Previous Rx's ?Medication ?Instructions ?Recorded sulfamethoxazole 800 1 tab PO BID 14 days #28 tab s 07/11/23 mg-trimethoprim 160 mg tablet (Bactrim DS) lidocaine HCl 2 % mucosal solution 1 applic mucous mem brane Q6H PRN 08/26/24 (Lidocaine Viscous) pain #600 mL phenazopyridine 100 mg tablet 200 mg (2 x 100 mg) PO Q 8H 5 days 08/26/24 #30 tabs Allergies Allergy/AdvReac Type Severity Reaction Status Date / Time No Known Allergies Allergy Verified 07/11/23 19:42 [facility] Disclaimer: The information contained in this section may have been updated after the patient was seen, as this information can be updated by other users. Social History Smoking Status: Never smoker alcohol intake: never current occupational status: employed Travel in the last 8 weeks?: None Have you lived/traveled outside US in past 30 days?: No Contact w/someone who lives/traveled outside US past 30 days?: No Exposure to someone with infectious disease in past 14 days?: No Do you have a fever (greater than 100.4 F or 38 C)?: No Have you tested positive for COVID-19?: No Exposed to someone with COVID-19 in past 14 days?: No Do you have a sore throat?: No Do you have a cough?: No Do you have any weakness?: No Do you have any diarrhea?: No Are you experiencing any unusual bleeding?: No Do you have any muscle aches/pain?: No Do you have any abdominal pain?: No Are you experiencing loss of taste or smell?: No Other Medical History Have you received the Flu Vaccine for this season: No Have you received the Pneumonia Vaccine: No ROS Obtained: Yes All systems reviewed & no additional complaints except as documented and Yes Systems reviewed as appropriate & no additional complaints except as documented Physical Exam General General appearance: alert and in no apparent distress Head Head exam: atraumatic, normocephalic and normal inspection Eye Eye exam: Present normal appearance, PERRL and EOMI; Absent scleral icterus ENT ENT exam: Present normal exam and normal external ear exam Neck Neck exam: Present normal inspection and full ROM Chest Chest inspection: Present normal inspection and symmetric chest wall rise Respiratory Respiratory exam: Present normal lung sounds bilaterally; Absent respiratory distress or wheezes Cardiovascular Cardiovascular exam: Present regular rate, normal rhythm and normal heart sounds Abdominal Exam Abdominal exam: Present soft and distention; Absent tenderness, guarding or rebound Extremities Exam Extremities exam: Present normal inspection and full ROM Back Exam Back exam: Present normal inspection and full ROM Neurological Exam Neurological exam: Present alert and oriented X3 Psychiatric Psychiatric exam: Present normal affect and normal mood Skin Skin exam: Present warm and dry Medical Decision Making Medical Records Medical records reviewed: Yes I reviewed the patient's medical records. Screening: Per USPSTF and CDC recommendations, given the prevalence of disease in our region, it is our hospital?s policy to screen for HIV and viral Hepatitis for all patients aged 18 and over and those with ongoing risk factors. Juanito Inquiry Pt receiving controlled substance: No Vital Signs: 11/12/24 22:45 11/12/24 22:57 Temperature 98.5 F 98.5 F Temperature Source Oral Oral Pulse Rate 75 Pulse Rate [Radial] 75 Respiratory Rate 16 16 Blood Pressure 140/84 Blood Pressure [Right Arm] 140/85 Blood Pressure Mean [Right Arm] 103 Blood Pressure Position Sitting Blood Pressure Position [Right Arm] Sitting 02 Sat by Pulse Oximetry 98 Oxygen Delivery Method Room Air Room Air Lab Data Lab results reviewed: Yes I reviewed the patient's lab results. Medical Decision Narrative: Patient is an otherwise healthy 68-year-old gentleman who presents to the emergency department after a piece of his hearing aid got stuck in his right ear. On arrival, patient was hemodynamically stable with unremarkable vital signs. Differential includes but not limited to: Foreign body, otitis externa, tympanic membrane rupture, otitis media, amongst others. The foreign body was removed from patient's right ear. Patient had no evidence of tympanic rupture or other acute trauma. At this time, patient was stable and appropriate for discharge home. Critical Care Critical Care Time Critical Care Time: No
[2024-11-12 22:57] VITALS: BP 140/84; PULSE 75; RESP 16; TEMP 36.9; O2SAT 98
== END 2024-11-12 22:58 | disposition home or self-care (01) ==
PROVIDERS: Emergency Provider Student in an Organized Health Care Education/Training Program; PCP Family Medicine Addiction Medicine
DX: T16.1XXA Foreign body in right ear, initial encounter (principal); W44.8XXA Other foreign body entering into or through a natural orifice, initial encounter
CPT/HCPCS: 69200; 99282

== ENCOUNTER 2025-01-27 13:08 | Outpatient (CLI) | payer MEDICARE, SELFPAY ==
--- OUTSIDE RECORDS SUMMARY | 2024-12-13 07:30 | XMS_ITS | Encounter Summary ---
Author Organization [facility] Address [address] [place] [address] Care Team Providers Care Knowledge Management Consultant Name Role Phone Dulce Isaacs MD Primary Care Provider Encounter Details Date Type Department Care Team (Late st Contact Info) Description 12/13/2024 7:30 AM EDT External Surgery [facility] - Urology [address] [place] [address] Greg Baldwin MD [address] [place] [address], [address] [place] [phone] Social History Tobacco Use Types Packs/Day Years Used Date Smoking Tobacco: Former Cigarettes 2 22 1 976 - 1998 Smokeless Tobacco: Never Alcohol Use Standard Drinks/Week Comments Never 0 (1 standard drink = 0.6 oz pur e alcohol) Sex and Gender Information Value Date Recorded Sex Assigned at Not on file Legal Sex Male 9:17 AM EDT Gender Identity Not on file Sexual Orientation Not on file documented as of this encounter Plan of Treatment Upcoming Encounters Date Type Department Care Team (Late st Contact Info) Description 02/17/2025 4:00 PM EST Telemedicine [facility] - Urology [address] [address] Greg Baldwin MD [address] [place] [address], [address] [place] [phone] 03/23/2025 11:00 AM EST External Surgery [facility] - [facility]rology [address] [address] Greg Baldwin MD 401 [facility], [address] [place] [phone] 04/11/2025 11:30 AM EST Office Visit [facility] - [facility]rology [address] [address] Jackeline Fernando, SPEECH AND HEARING CLINIC DIRECTOR [address] [address] documented as of this encounter Visit Diagnoses Not on filedocumented in this encounter Care Teams Knowledge Management Consultant Relationship Specialty Start Date End Date Dulce Isaacs MD [address] [facility] [address] [place] [address] PCP - General Family Medicine 04/21/24 documented as of this encounter
--- OUTSIDE RECORDS SUMMARY | 2025-01-24 07:30 | XMS_ITS | Encounter Summary ---
Author Organization [facility] Address [address] [place] [address] Care Team Providers Care Home Health Aide Caregiver Name Role Phone Dulce Isaacs MD Primary Care Provider [phone] Reason for Referral * Consultation (Routine) - Pending Review Specialty Diagnoses / Procedures Referred By Aristeo churchill Referred To Contact Urology Diagnoses Bulbous urethral stricture, male, not otherwise specified Lower urinary tract symptoms Greg Baldwin MD [address] [place] [address], [address] [place] [phone] Phone: tel: fax: Greg Baldwin MD [address] [place] [address], [address] [place] [phone] Phone: tel: fax: Referral ID Status Reason Start Date Expiration Date V isits Requested Visits Authorized [id number] Pending Review Other 01/24/2025 02/23/2026 1 1 Encounter Details Date Type Department Care Team (Late st Contact Info) Description 01/24/2025 7:30 AM EDT External [facility] [address] [facility] [address] [place] [address] Greg Baldwin MD [address] [place] [address], [address] [place] [phone] Bulbous urethral stricture, male, not otherwise specified (Primary Dx); Lower urinary tract symptoms Social History Tobacco Use Types Packs/Day Years Used Date Smoking Tobacco: Former Cigarettes 2 22 1 976 - 1997 Smokeless Tobacco: Never Alcohol Use Standard Drinks/Week [...] PM EST Telemedicine [facility] - Urology [address] [place] [address] Greg Baldwin MD [address] [place] [phone] 03/23/2025 11:00 AM EST External Surgery [facility]rology [address] [place] [address] Greg Baldwin MD [address] [place] [phone] 04/11/2025 11:30 AM EST Office Visit [facility] [address] [place] [address] Jackeline Fernando, BAM [address] [address] Scheduled Referrals Name Type Priority Associated Diagnoses Order Schedule Surgical Scheduling referral Procedure: URETHROPLASTY; Procedure: Anterior urethral reconstruction, possible BMG; Laterality: N/A; Is anesthesia required? Yes; General or MAC? General; Pre-Admission Testing? Yes (see below); Expected Patient Class... Outpatient Referral Routine Bulbous urethral stricture, male, not otherwise specified Lower urinary tract symptoms Ordered: 01/24/2025 documented as of this encounter Visit Diagnoses Diagnosis Bulbous urethral stricture, male, not otherwise specified- Primary Lower urinary tract symptoms documented in this encounter Care Teams Home Health Aide Caregiver Relationship Specialty Start Date End Date Dulce Isaacs MD [address] [facility] [address] [place] [address] PCP - General Family Medicine 04/21/24 documented as of this encounter
--- OUTSIDE RECORDS SUMMARY | 2025-01-27 13:12 | XMS_ITS | Encounter Summary ---
Author Organization [facility] Address [address] [place] [address] Care Team Providers Care Real Estate Investment Analyst Name Role Phone Dulce Isaacs MD Primary Care Provider [phone] Encounter Details Date Type Department Care Team (Late st Contact Info) Description 01/03/2025 Telephone [facility] [address] [facility] [address] [place] [address] Greg Baldwin MD [address] [place] [address], [address] [place] [address] Social History Tobacco Use Types Packs/Day [...] on file documented as of this encounter Miscellaneous Notes * Telephone Encounter - Naya Blake MA - 01/06/2025 1:59 PM EDT Tried to call pt but lvm, it does look as if pt had a preop culture scanned into his chart today please review this and let me know if something needs to be sent to pharmacy for pt * Telephone Encounter - Naya Blake MA - 01/06/2025 1:57 PM EDT Lvm, * Telephone Encounter - Merced Hall - 01/03/2025 11:34 AM EDT Telephone Triage INCOMING CALL What is caller's first and last name?: Good Michael What is the caller's relationship to the patient?: Self What is a reliable and direct callback phone number?: [phone] Please inform the caller: Before I continue with the following questions, I just want to clarify for your understanding thatI am not clinical and can not offer any medical advice or treatments. But I am collecting this information to pass on to our clinical team who will get back to you. What problem is the patient experiencing? UTI--Pt lvm stating that he has a UTI and he also has a catheter placed, asking for a call back at number above, thx. documented in this encounter Plan of Treatment Upcoming Encounters Date Type Department Care Team (Late st Contact Info) Description 02/17/2025 4:00 PM EST Telemedicine [facility] - Urology [address] [place] [address] Greg Baldwin MD [address] [place] [address], [address] [phone] 03/23/2025 11:00 AM EST External Surgery [facility] - Urology [address] [place] [address] Greg Baldwin MD [address] [place] [phone] 04/11/2025 11:30 AM EST Office Visit [facility] - [facility]rology [address] [place] [address] Jackeline Fernando, EDI COORDINATOR [address] [facility] [address] [place] [address] documented as of this encounter Visit Diagnoses Not on filedocumented in this encounter Care Teams Real Estate Investment Analyst Relationship Specialty Start Date End Date Dulce Isaacs MD [address] [facility] [address] [place] [address] PCP - General Family Medicine 04/21/24 documented as of this encounter
--- OUTSIDE RECORDS SUMMARY | 2025-01-27 13:12 | XMS_ITS | Encounter Summary ---
Author Organization [facility] Address [address] [place] [address] Care Team Providers Care Scrap Kettle Tender Name Role Phone Dulce Isaacs MD Primary Care Provider [phone] Encounter Details Date Type Department Care Team (Late st Contact Info) Description 12/21/2024 Telephone [facility] [address] [place] [address] Saurabh Givens MD [address] [facility] [address] [place] [address] Social History Tobacco Use Types Packs/Day Years [...] encounter Miscellaneous Notes * Telephone Encounter - Saurabh Givens MD - 12/21/2024 7:48 PM EDT Patient report dysuria since this morning that is not improving with Oxybutynin, and Gabapentin. Denies any fever, chills, NV. Reports SPT is draining without issues. States this feels like his UTI pain. Advise to follow up in the clinic in AM, verbalizes understanding. documented in this encounter Plan of Treatment Upcoming Encounters Date Type Department Care Team (Late st Contact Info) Description 02/17/2025 4:00 PM EST Telemedicine [facility] - Urology [address] [address] Greg Baldwin MD [address] [place] [address], [address] [phone] 03/23/2025 11:00 AM EST External Surgery [facility] [address] [address] Greg Baldwin MD [address] [place] [address], [address] [place] [phone] 04/11/2025 11:30 AM EST Office Visit [facility]rology [address] [address] Jackeline Fernando, CONTINUOUS WASHER OPERATOR [address] [address] documented as of this encounter Visit Diagnoses Not on filedocumented in this encounter Care Teams Scrap Kettle Tender Relationship Specialty Start Date End Date Dulce Isaacs MD [address] [facility] [address] [place] [address] PCP - General Family Medicine 04/21/24 documented as of this encounter
--- OUTSIDE RECORDS SUMMARY | 2025-01-27 13:12 | XMS_ITS | Encounter Summary ---
Author Organization [facility] Address [address] [place] [address] Care Team Providers Care Telephone Lines Repairer Name Role Phone Dulce Isaacs MD Primary Care Provider [phone] Encounter Details Date Type Department Care Team (Late st Contact Info) Description 01/06/2025 Telephone [facility] [address] [facility] [address] [place] [address] Greg Baldwin MD [address] [place] [address], [address] [place] [address] Social History Tobacco Use Types [...] encounter Miscellaneous Notes * Telephone Encounter - Julissa Garcia RN - 01/12/2025 8:25 AM EDT Spoke with pt, made aware Dr. Baldwin sent in Vesicare for him to try. Closing call. * Telephone Encounter - Julissa Garcia RN - 01/11/2025 4:44 PM EDT Spoke with pt, reports feeling better from UTI symptoms. S/P tube draining well. No urinary complaints. The only thing really bothering him is the up at night every 2 hours. His sleep pattern is all messed up due to getting up every 2 hours this past year to pee. Instructed can do a nighttime yoga,sound machine, any natural supplements to help fall asleep like magnesium, or a red night light. Heplans on trying these things. Instructed also to follow up with PCP to see if they have any additional recommendations to stay asleep. He wanted Dr Baldwin know this as well. * Telephone Encounter - Cristy Anderson - 01/06/2025 11:47 AM EDT Pt called and states he is still having pain and issues at night. Pt wants to know if Dr Baldwin can call him in something to help. Pt uses [employer] in [place] , pt can be reached at [phone]. documented in this encounter Plan of Treatment Upcoming Encounters Date Type Department Care Team (Late st Contact Info) Description 02/17/2025 4:00 PM EST Telemedicine [facility] - Urology [address] [place] [address] Greg Baldwin MD [address] [place] [phone] 03/23/2025 11:00 AM EST External Surgery [facility] Urology [address] [place] [address] Greg Baldwin MD [address] [place] [phone] 04/11/2025 11:30 AM EST Office Visit [facility] - Urology [address] [place] [address] [address] [place] [address] Jackeline Fernando, NEUROLOGY TECH [address] [facility] [address] [place] [address] documented as of this encounter Visit Diagnoses Not on filedocumented in this encounter Care Teams Telephone Lines Repairer Relationship Specialty Start Date End Date Dulce Isaacs MD [address] [facility] [address] [place] [address] PCP - General Family Medicine 04/21/24 documented as of this encounter
--- OUTSIDE RECORDS SUMMARY | 2025-01-27 13:12 | XMS_ITS | Encounter Summary ---
Author Organization [facility] Address [address] [facility] [address] [place] [address] Care Team Providers Care Fabricator Foam Rubber Name Role Phone Dulce Isaacs MD Primary Care Provider [phone] Encounter Details Date Type Department Care Team (Late st Contact Info) Description 11/30/2024 Telephone [facility] [address] [facility] [address] [place] [address] Greg Baldwin MD [address] [place] [address], [address] [place] [address] Social History Tobacco Use Types Packs/Day Years Used Date Smoking Tobacco: Former Cigarettes 2 22 976 - 1997 Smokeless Tobacco: Never Alcohol [...] Telephone Encounter - Julissa Garcia RN - 11/30/2024 11:16 AM EDT Spoke with pt, made aware of Dr Baldwin's recommendation to proceed to ER/Urgent care for further evaluation since he is having a fever with his UTI symptoms. Per Kimberly's note, pt r/s for sx. Closing call. * Telephone Encounter - Kimberly Dianna - 11/30/2024 11:09 AM EDT Called patient and relayed info below from Dr Baldwin, patient voiced understanding. Cancelling procedure for 12/01 and R/S to 12/13 * Telephone Encounter - Julissa Garcia RN - 11/30/2024 10:05 AM EDT Spoke with pt, reports past 2 days burning in urethra, frequency, urgency, pain in urethra, painfulurination, and low grad fever tmax 100. Concerned due to sx with Dr Baldwin is tomorrow. His home urine test was + Nitrites. documented in this encounter Plan of Treatment Upcoming Encounters Date Type Department Care Team (Late st Contact Info) Description 02/17/2025 4:00 PM EST Telemedicine [facility] - Urology [address] [address] Greg Baldwin MD [address] [place] [address], [address] [phone] 03/23/2025 11:00 AM EST External Surgery [facility] [address] [address] Greg Baldwin MD [address] [place] [address], [address] [phone] 04/11/2025 11:30 AM EST Office Visit [facility] - Urology [address] [address] Jackeline Fernando, LEGAL STENOGRAPHER [address] [address] documented as of this encounter Visit Diagnoses Not on filedocumented in this encounter Care Teams Fabricator Foam Rubber Relationship Specialty Start Date End Date Dulce Isaacs MD [address] [facility] [address] [place] [address] PCP - General Family Medicine 04/21/24 documented as of this encounter
--- OUTSIDE RECORDS SUMMARY | 2025-01-27 13:12 | XMS_ITS | Encounter Summary ---
Author Organization [facility] Address [address] [place] [address] Care Team Providers Care Sport Psychologist Name Role Phone Dulce Isaacs MD Primary Care Provider [phone] Encounter Details Date Type Department Care Team (Late st Contact Info) Description 12/22/2024 Telephone [facility] [address] [facility] [address] [place] [address] Greg Baldwin MD [address] [place] [address], [address] [place] [address] Social History Tobacco Use Types Packs/Day Years Used Date Smoking Tobacco: Former Cigarettes 2 27 04 976 - 1997 Smokeless Tobacco: Never Alcohol [...] Telephone Encounter - Julissa Garcia RN - 12/28/2024 12:43 PM EDT Spoke with pt, reports has a couple of days with severe bladder spasms causing urgency and this past Thursday it was similar symptoms but today everything is calm and no urinary issues. Nothing furtherneeded at this time. Will keep scheduled sx for 01/24/[address] Baldwin. Will obtain pre procedure urine cx 2 weeks prior. Closing call. * Telephone Encounter - Tracie Gruber - 12/22/2024 8:41 AM EDT ----- Message from [employer] Tosha sent at 12/21/2024 7:50 PM EDT ----- Please schedule Appointment Type: Follow-up Time Frame: 12/22 for UA and dysuria evaluation Provider: Any Available PHYSICIAN (/) Reason: dysuria Imaging/Labs: (no imaging/labs needed/expected) Overbook: OK to Double-Book Patient Remaining Inpatient Today (for office contact purposes): No Appointment requested by: Tosha Follow-up plan reviewed by/discussed with: Dr. Greg Baldwin * Telephone Encounter - Brit Gongora - 12/22/2024 8:23 AM EDT Patient stated that he would like to talk to Dr. Baldwin, regarding the pain, that he was in yesterday, he stated that he was offered an appointment for 12/22/24, but was unable to come. Please contacthim at [phone]. Thank you, Brit documented in this encounter Plan of Treatment Upcoming Encounters Date Type Department Care Team (Late st Contact Info) Description 02/17/2025 4:00 PM EST Telemedicine [facility] - [facility]rology [address] [address] Greg Baldwin MD [address] [place] [address], [address] [phone] 03/23/2025 11:00 AM EST External Surgery [facility] [address] [address] Greg Baldwin MD 401 [facility], [address] [place] [phone] 04/11/2025 11:30 AM EST Office Visit [facility] - [facility]rology [address] [facility] [address] [place], [place] [id number] Jackeline Fernando, CAFETERIA DIRECTOR [address] [facility] [address] [place] [address] documented as of this encounter Visit Diagnoses Not on filedocumented in this encounter Care Teams Sport Psychologist Relationship Specialty Start Date End Date Dulce Isaacs MD [address] [facility] [address] [place] [address] PCP - General Family Medicine 04/21/24 documented as of this encounter
--- OUTSIDE RECORDS SUMMARY | 2025-01-27 13:13 | XMS_ITS | Encounter Summary ---
Author Organization [facility] Address [address] [place] [address] Care Team Providers Care Chief Executive Or Managing Director Name Role Phone Dulce Isaacs MD Primary Care Provider [phone] Adwoa Oakes MD Unavailable [phone] Checo Diaz MD Unavailable [phone] Tere Garcia APRN, [facility] Unavailable [phone] Encounter Details Date Type Department Care Team (Late st Contact Info) Description 01/13/2025 Orders Only [facility] at [facility] [address] [place] [address] Dulce Isaacs MD [address] [place] [address] Social History Tobacco Use Types [...] Recorded Patient Health Questionnaire-9 Score 0 08/17/2024 AUDIT-C Answer Date Recorded Q1: How often do you have a drink containing alcohol? Never 11/22/2024 Q2: How many drinks containi ng alcohol do you have on a typical day when you are drinking? Patient does not drink Q3: How often do you have si x or more drinks on one occasion? Never 11/22/2024 CAGE ASSESSMENT Answer Date Recorded Cage unable [...] drink first t eddie in the morning (EYE-BIOMETRICS HEAD) to steady your nerves or to get [...] Care Team (Late st Contact Info) Description 02/23/2025 10:30 AM EST Office Visit [facility] [address] [place] [address] Asha Briseno, BAM [address] [facility] [address] [place] [address] 02/27/2025 9:00 AM EST Office Visit [facility] [address], 2nd [place] [address] Lamar Arreaga, BAM, DNP [address] [place] [address] documented as of this encounter Procedures Procedure Name Priority Date/Time Associated Diagnosis Comments COMPREHENSIVE METABOLIC PANEL, PLASMA Routine 01/13/2025 7:32 PM EDT documented in this encounter Results * Comprehensive Metabolic Panel, Plasma (01/13/2025 7:32 PM EDT) External Glucose 96 74 - 100 mg/dL 01/13/2025 8:11 PM EDT [facility] External BUN 13 6 - 20 mg/dL 01/13/2025 8:11 PM EDT [facility] External Creatinine Blood 1.13 0.70 - 1.20 mg/dL 01/13/2025 8:11 PM EDT [facility] External BUN/Creat Ratio 12 10 - 20 (calc) 01/13/2025 8:11 PM EDT [facility] External Sodium 136 136 - 145 mmol/L 01/13/2025 8:11 PM EDT [facility] External Potassium 4.5 3.4 - 5.0 mmol/L 01/13/2025 8:11 PM EDT [facility] External Chloride 100 98 - 107 mmol/L 01/13/2025 8:11 PM EDT [facility] External Carbon Dioxide (CO2) 23 22 - 31 mmol/L 01/13/2025 8:11 PM EDT [facility] External Anion Gap (AG) 13 7 - 25 (calc) 01/13/2025 8:11 PM EDT [facility] External Calcium 9.4 8.6 - 10.2 mg/dL 01/13/2025 8:11 PM EDT [facility] External Total Protein 7.1 6.4 - 8.3 g/dL 01/13/2025 8:11 PM EDT [facility] External Albumin 4.4 3.5 - 5.2 g/dL 01/13/2025 8:11 PM EDT [facility] External Globulin 2.7 1.5 - 4.5 025 8:11 PM EDT [facility] External Albumin/Globulin Ratio 1.6 1.1 - 2.5 (calc) 01/13/2025 8:11 PM EDT [facility] External Bilirubin Total 0.3 0.1 - 1.0 mg/dL 01/13/2025 8:11 PM EDT [facility] Comment:NOTE: New reference range. External Alkaline Phosphatase 81 40 - 129 U/L 01/13/2025 8:11 PM EDT [facility] External AST (SGOT) 21 0 - 40 U/L 01/13 8:11 PM EDT [facility] External ALT (SGPT) 28 0 - 41 U/L 01/13 8:11 PM EDT [facility] External Estimated GFR 71 >=60 01/13/2025 8:11 PM EDT [facility] Comment: NOTE New calculation for GFR (CKD-EPI 2020) is formulated without race adjustment factors at the recommendation of the National Kidney Foundation and [place] Society [employer] Neph[employer]. This calculation has not been validated in women. For pediatric patients refer to https://www.kidney.org/professionals/KDOQI/gfr_calculatorPed 01/13/2025 7:32 PM EDT 01/13/2025 7:32 PM EDT us Dulce Isaacs MD LAB BLOOD ORDERABLES Final Resu lt [facility] [address] [place] [address], documented in this encounter Visit Diagnoses Not on filedocumented in this encounter Additional Health Concerns Assessment Noted Time PHQ-9 Depression Total Score: 0 08/18/19 11:17 AM EDT A fall risk assessment has been complete d for the patient 11/22/2024 2:24 PM EDT A Body Mass Index follow-up plan has been documented for the patient 11/28/2024 11:07 AM EDT documented as of this encounter Care Teams Chief Executive Or Managing Director Relationship Specialty Start Date End Date Dulce Isaacs MD [address] [facility] [facility] [place] [address] PCP - General 01/08/22 Adwoa Oakes MD [address] [facility] 2nd [place] [address] Medical Oncologist Hematology and Oncology 06/30/23 Checo Diaz MD [address] [place] [address] Consulting Physician Urology 08/17/23 Tere Garcia, BAM, [facility] [address] [place] [address] Nurse Practitioner Urology 02/17/24 documented as of this encounter
--- OUTSIDE RECORDS SUMMARY | 2025-01-27 13:13 | XMS_ITS | Encounter Summary ---
Author Organization [facility] Address [address] [place] [address] Care Team Providers Care Online Merchandising Specialist Name Role Phone Dulce Isaacs MD Primary Care Provider [phone] Encounter Details Date Type Department Care Team (Late st Contact Info) Description 01/24/2025 Telephone [facility] [address]rd [place] [address] Greg Baldwin MD [address] [place] [address], [address] [place] [address] Social History Tobacco Use Types [...] encounter Miscellaneous Notes * Telephone Encounter - Blanca Sorensen - 01/26/2025 1:17 PM EDT PT RETURNED CALL AND DECIDED ON A SX DATE. I WILL SCHEDULE * Telephone Encounter - Blanca Sorensen - 01/26/2025 11:33 AM EDT LMTC TO DISCUSS SX DATES * Telephone Encounter - Kimberly Dianna - 01/26/2025 11:29 AM EDT Please see below. Thank you * Telephone Encounter - Kimberly Bustamante - 01/26/2025 11:29 AM EDT Per ms, Dr Baldwin's mold checker Shakira is reaching out to patient to schedule. * Telephone Encounter - Brit Gongora - 01/24/2025 3:49 PM EDT Patient stated that he is experiencing a lot of pain, he had procedure on 01/24/2025, please contact patient [phone]. He is requesting pain medication. Thank you, Brit documented in this encounter Plan of Treatment Upcoming Encounters Date Type Department Care Team (Late st Contact Info) Description 02/17/2025 4:00 PM EST Telemedicine [facility] - Urology [address] [place] [address] Greg Baldwin MD [address] [place] [phone] 03/23/2025 11:00 AM EST External Surgery [facility]rology [address] [place] [address] Greg Baldwin MD [address] [place] [phone] 04/11/2025 11:30 AM EST Office Visit [facility]rology [address] [address] [place] [address] Jackeline Fernando, DRIVE MAN [address] [facility] [address] [place] [address] documented as of this encounter Visit Diagnoses Not on filedocumented in this encounter Care Teams Online Merchandising Specialist Relationship Specialty Start Date End Date Dulce Isaacs MD [address] [facility] [address] [place] [address] PCP - General Family Medicine 04/21/24 documented as of this encounter
--- OUTSIDE RECORDS SUMMARY | 2025-01-27 13:13 | XMS_ITS | Encounter Summary ---
Author Organization [facility] Address [address] [place] [address] Care Team Providers Care Fourth Hand Name Role Phone Dulce Isaacs MD Primary Care Provider [phone] Encounter Details Date Type Department Care Team (Late st Contact Info) Description 01/11/2025 Orders Only [facility] Urology [address] [address] Greg Baldwin MD [address] [place] [address], [address] [address] Spasm of urinary bladder (Primary Dx); Overactive bladder Social History Tobacco Use Types Packs/Day Years [...] Telemedicine [facility] Urology [address] [phone] Greg Baldwin MD [address] [place] [address], [address] [address] 03/23/2025 11:00 AM EST External Surgery [facility] [address] [address] Greg Baldwin MD [address] [facility] [place] [address] 04/11/2025 11:30 AM EST Office Visit [facility]rology [address] [address] Jackeline Fernando, SOFT SHOE DANCER [address] [address] documented as of this encounter Visit Diagnoses Diagnosis Spasm of urinary bladder- Primary Overactive bladder documented in this encounter Care Teams Fourth Hand Relationship Specialty Start Date End Date Dulce Isaacs MD [address] [facility] [address] [place] [address] PCP - General Family Medicine 04/21/24 documented as of this encounter
--- OUTSIDE RECORDS SUMMARY | 2025-01-27 13:13 | XMS_ITS | Encounter Summary ---
Author Organization [facility] Address [address] [place] [address] Care Team Providers Care Master Planner Name Role Phone Dulce Isaacs MD Primary Care Provider [phone] Adwoa Oakes MD Unavailable [phone] Checo Diaz MD Unavailable [phone] Tere Garcia APRN, [facility] Unavailable [phone] Encounter Details Date Type Department Care Team (Late st Contact Info) Description 01/13/2025 Orders Only [facility] at [facility] [address] [place] [address] Dulce Isaacs MD [address] [place] [address] Social History Tobacco Use Types [...] drink first t eddie in the morning (EYE-LEGAL SERVICE SPECIALIST) to steady your nerves or to [...] Description 02/23/2025 10:30 AM EST Office Visit [facility] [address] [place] [address] Asha Briseno, BAM [address] [facility] [address] [place] [address] 02/27/2025 9:00 AM EST Office Visit [place] [facility] [address], [address]nd [place] [address] Lamar Arreaga, BAM, DNP [address] [place] [address] documented as of this encounter Procedures Procedure Name Priority Date/Time Associated Diagnosis Comments LIPID PROFILE, PLASMA Routine 01/13/2025 7:32 PM EDT documented in this encounter Results * (ABNORMAL) Lipid Profile, Plasma (01/13/2025 7:32 PM EDT) External HDL Cholesterol 43 mg/dL 01/13/2025 8:11 PM EDT [facility] Comment: NORMAL RANGE FEMALE >49 MALE >39 NOTE: NEW NORMAL RANGE External Triglycerides 163(H) 0 - 149 mg/dL 01/13/2025 8:11 PM EDT [facility] Comment: TRIGLYCERIDE RANGES NORMAL: < 150 BORDERLINE HIGH: 150 - 199 HIGH: 200 - 499 VERY HIGH: > OR = 500 External Cholesterol 244(H) 0 - 199 mg/dL 01/13/2025 8:11 PM EDT [facility] Comment: CHOLESTEROL (TOTAL) RANGES DESIRABLE: < 200 BORDERLINE: 200 - 239 HIGHER RISK: > 239 External LDL Cholesterol 168(H) 0 - 99 mg/dL (calc) 01/13/2025 8:11 PM EDT [facility] Comment: LDL CHOLESTEROL RANGES OPTIMAL: < 100 NEAR/ABOVE OPTIMAL: 100 - 129 BORDERLINE HIGH: 130 - 159 HIGH: 160 - 189 VERY HIGH: > OR = 190 External Chol/HDL Ratio 5.7 mg/dL 01/13/2025 8:11 PM EDT [facility] Comment:NO NORMAL RANGE ESTA BLISHED FOR CHOLESTEROL/HDL RATIO(CALCULATED). EXTERNAL DIRECT,LDL CHOLESTEROL 168(H) 0 - 99 01/13/2025 8:11 PM EDT [facility] 01/13/2025 7:32 PM EDT 01/13/2025 7:32 PM EDT us Dulce Isaacs MD LAB BLOOD ORDERABLES Final Resu lt [facility] [address] [place] [address], documented in this encounter Visit Diagnoses Not [...] documented as of this encounter Care Teams Master Planner Relationship Specialty Start Date End Date Dulce Isaacs MD [address] [facility] [place] [address] PCP - General 01/08/22 Adwoa Oakes MD [address] [facility] 2nd [place] [address] Medical Oncologist Hematology and Oncology 06/30/23 Checo Diaz MD [address] [address] Consulting Physician Urology 08/17/23 Tere Garcia, BAM, DNP [address] [address] Nurse Practitioner Urology 02/17/24 documented as of this encounter
--- OUTSIDE RECORDS SUMMARY | 2025-01-27 13:13 | XMS_ITS | Encounter Summary ---
Author Organization [facility] Address [address] [place] [address] Care Team Providers Care Angledozer Operator Name Role Phone Dulce Isaacs MD Primary Care Provider [phone] Adwoa Oakes MD Unavailable [phone] Checo Diaz MD Unavailable [phone] Tere Garcia APRN, [facility] Unavailable [phone] Encounter Details Date Type Department Care Team (Late st Contact Info) Description 11/24/2024 Orders Only External Location [address] [place] [address] Provider, External Social History Tobacco Use Types Packs/Day Years [...] drink first t eddie in the morning (EYE-MANAGER COMMUNITY RELATIONS) to steady your nerves or to get [...] Description 02/23/2025 10:30 AM EST Office Visit [facility] [address] [place] [address] Asha Briseno, WOODS MANAGER [address] [facility] [address] [place] [address] 02/27/2025 9:00 AM EST [facility] [address], [address] [place] [address] Lamar Arreaga, WOODS MANAGER, DNP [address] [place] [address] documented as of this encounter Procedures Procedure Name Priority Date/Time Associated Diagnosis Comments POC ULTRASOUND 11/24/2024 documented in this encounter Results * POC Imaging (11/24/2024) Anatomical Region Laterality Modality Pelvis Other 11/24/2024 us External Provider IMG POINT OF CARE ULTRASOUND F inal Result documented in this encounter Visit Diagnoses [...] documented as of this encounter Care Teams Angledozer Operator Relationship Specialty Start Date End Date Dulce Isaacs MD [address] [facility] [place] [address] PCP - General 01/08/22 Adwoa Oakes MD [address] [facility] [address] [place] [address] Medical Oncologist Hematology and Oncology 06/30/23 Checo Diaz MD [address] [place] [address] Consulting Physician Urology 08/17/23 Tere Garcia, BAM, [facility] [address] [place] [address] Nurse Practitioner Urology 02/17/24 documented as of this encounter
--- OUTSIDE RECORDS SUMMARY | 2025-01-27 13:13 | XMS_ITS | Encounter Summary ---
Author Organization [facility] Address [address] [place] [address] Care Team Providers Care Shipping Order Clerk Name Role Phone Dulce Isaacs MD Primary Care Provider [phone] Adwoa Oakes MD Unavailable [phone] Checo Diaz MD Unavailable [phone] Tere Garcia APRN, [facility] Unavailable [phone] Encounter Details Date Type Department Care Team (Late st Contact Info) Description 01/13/2025 Orders Only [facility] at [facility] [address] [place] [address] Dulce Isaacs MD [address] [place] [address] Social History Tobacco Use Types [...] drink first t eddie in the morning (EYE-CUPOLA CHARGER INSULATION) to steady your nerves or to get [...] Description 02/23/2025 10:30 AM EST Office Visit [facility] [address] [place] [address] Asha Briseno, BAM [address] [facility] [address] [place] [address] 02/27/2025 9:00 AM EST Office Visit [facility] [address] [place] [address] Lamar Arreaga, BAM, DNP [address] [place] [address] documented as of this encounter Procedures Procedure Name Priority Date/Time Associated Diagnosis Comments CBC WITH AUTO DIFFERENTIAL Routine 01/13/2025 7:47 PM EDT documented in this encounter Results * (ABNORMAL) CBC and Differential (01/13/2025 7:47 PM EDT) External WBC 6.6 3.8 - 10.8 10*3/uL 01/13/2025 8:26 PM EDT [facility] External Red Blood Cell (RBC) 4.32 4.20 - 5.80 10*6/uL 01/13/2025 8:26 PM EDT [facility] External Hemoglobin 13.1(L) 14.0 - 18.0 g/dL 01/13/2025 8:26 PM EDT [facility] External Hematocrit 38.7(L) 40.0 - 52.0 % 01/13/2025 8:26 PM EDT [facility] External MCV 90 80 - 100 fL 01/13/2025 8:26 PM EDT [facility] External MCH 30 26 - 35 pg 01/13/2025 8:26 PM EDT [facility] External MCHC 34 32 - 36 g/dL 01/13/2025 8:26 PM EDT [facility] External RDW 13.0 11.0 - 15.0 % 01/13/2025 8:26 PM EDT [facility] External Mean Platelet Volume 9.2 6.2 - 10.5 fL 01/13/2025 8:26 PM EDT [facility] External Platelet Count (Plt) 319 150 - 400 10*3/uL 01/13/2025 8:26 PM EDT [facility] External Neutrophil# 3.9 1.6 - 8.4 10*3/uL 01/13/2025 8:26 PM EDT [facility] External Lymphocyte# 2.0 0.4 - 5.1 10*3/uL 01/13/2025 8:26 PM EDT [facility] External Absolute Monocyte (Abs [place]) 0.5 0.0 - 1.2 10*3/uL 01/13/2025 8:26 PM EDT [facility] External Eosinophils# 0.1 0.0 - 0.8 10*3/uL 01/13/2025 8:26 PM EDT [facility] External Baso# 0.1 0.0 - 0.3 10*3/uL 01/13/2025 8:26 PM EDT [facility] External Neutrophils % 58.9 42.0 - 78.0 % 01/13/2025 8:26 PM EDT [facility] External Lymphocyte % 30.6 11.0 - 47.0 % 01/13/2025 8:26 PM EDT [facility] External Monocyte % 8.0 0.0 - 11.0 % 01/13/2025 8:26 PM EDT [facility] External Eosinophil% 1.6 0.0 - 7.0 % 01/13/2025 8:26 PM EDT [facility] External Basophil % 0.9 0.0 - 3.0 % 01/13/2025 8:26 PM EDT [facility] External Nucleated RBC%-Auto 0.0 0.0 - 0.9 % 01/13/2025 8:26 PM EDT [facility] External Nucleated RBC Absolute 0.00 Not Estab. 10*3/uL 01/13/2025 8:26 PM EDT [facility] 01/13/2025 7:47 PM EDT 01/13/2025 7:47 PM EDT us Dulce Isaacs MD LAB BLOOD ORDERABLES Final Resu lt [facility] [address] [place] [address], documented in this encounter Visit Diagnoses Not [...] documented as of this encounter Care Teams Shipping Order Clerk Relationship Specialty Start Date End Date Dulce Isaacs MD [address] [place] [address] PCP - General 01/08/22 Adwoa Oakes MD [address] [place] [address] Medical Oncologist Hematology and Oncology 06/30/23 Checo Diaz MD [address] [place] [address] Consulting Physician Urology 08/17/23 Tere Garcia, EVALUATION SPECIALIST, DNP [address] [place] [address] Nurse Practitioner Urology 02/17/24 documented as of this encounter
--- OUTSIDE RECORDS SUMMARY | 2025-01-27 13:13 | XMS_ITS | Clinical Summary ---
Author Organization [facility] Address [address] [place] [address] Care Team Providers Care Frame Carver Spindle Name Role Phone Dulce Isaacs MD Primary Care Provider [phone] Allergies No known active allergies Medications omeprazole [...] (1 year) 2001 ANNUAL WELLNESS VISIT 12/16/2016 INFLUENZA VACCINE 11/04/2024 02/24/2024, , 12/16/2021, Additional history exists COVID-19 Vaccine (4 - 2024-2 6 season) 2024 03/18/2021, 07/30/2020, 07/02/2020 TDAP/TD VACCINES (2 - Td or Tdap) [...] MD 05/05/2024 3:00 PM EST Workstation ID: [id number] 05/05/2024 3:[address] ABDOMEN PELVIS [...] MD 05/05/2024 3:00 PM EST Workstation ID: [id number] Joelle Everett PA-C IMG CT ORDERABLES Final Result from Last 3 Months or Most Recently Relevant to Health Maintenance Insurance MEDICARE A & B [facility] OPTIONS Care Teams Frame Carver Spindle Relationship Specialty Start Date End Date Dulce Isaacs MD [address] [facility] [address] [place] [address] PCP - General Family Medicine 05/05/24
--- OUTSIDE RECORDS SUMMARY | 2025-01-27 13:13 | XMS_ITS | Encounter Summary ---
Author Organization [facility] Address [address] [place] [address] Care Team Providers Care Video Effects Editor Name Role Phone Dulce Isaacs MD Primary Care Provider [phone] Adwoa Oakes MD Unavailable [phone] Checo Diaz MD Unavailable [phone] Tere Garcia APRN, [facility] Unavailable [phone] Encounter Details Date Type Department Care Team (Late st Contact Info) Description 01/13/2025 Orders Only [facility] at [facility] [address] [place] [address] Dulce Isaacs MD [address] [place] [address] Social History Tobacco Use Types [...] drink first t eddie in the morning (EYE-LINE ERECTOR) to steady your nerves or to get [...] Description 02/23/2025 10:30 AM EST Office Visit [facility] [address] [place] [address] Asha Briseno, BAM [address] [facility] [address] [place] [address] 02/27/2025 9:00 AM EST Office Visit [facility] [address]nd [place] [address] Lamar Arreaga, BAM, DNP [address] [place] [address] documented as of this encounter Procedures Procedure Name Priority Date/Time Associated Diagnosis Comments MICROALBUMIN/CREATI NINE RATIO Routine 01/13/2025 7:32 PM EDT documented in this encounter Results * Microalbumin/Creatinine Ratio (01/13/2025 7:32 PM EDT) External Microalbumin Urine Conc 13 0 - 19 mg/L 01/13/2025 9:20 PM EDT [facility] External Creatinine,Ur Random 66 mg/dL 01/13/2025 9:20 PM EDT [facility] Comment:NO NORMAL RANGE ES TABLISHED FOR RANDOM URINE. External Microalb/Creat Ratio 20 0 - 29 mcg/mg Creat 01/13/2025 9:20 PM EDT [facility] 01/13/2025 7:32 PM EDT 01/13/2025 8:38 PM EDT us Dulce Isaacs MD LAB URINE ORDERABLES Final Resu lt Performing Organization Address City/State/[facility] de Phone Number [facility] [address] [place] [address], documented in this encounter Visit Diagnoses Not [...] documented as of this encounter Care Teams Video Effects Editor Relationship Specialty Start Date End Date Dulce Isaacs MD [address] [facility] [place] [address] PCP - General 01/08/22 Adwoa Oakes MD [address] [facility] [address] [place] [address] Medical Oncologist Hematology and Oncology 06/30/23 Checo Diaz MD [address] [place] [address] Consulting Physician Urology 08/17/23 Tere Garcia, PEDIATRIC AUDIOLOGIST, DNP [address] [place] [address] Nurse Practitioner Urology 02/17/24 documented as of this encounter
--- OUTSIDE RECORDS SUMMARY | 2025-01-27 13:13 | XMS_ITS | Encounter Summary ---
Author Organization [facility] Address [address] [place] [address] Care Team Providers Care Mysql Dba Name Role Phone Dulce Isaacs MD Primary Care Provider [phone] Adwoa Oakes MD Unavailable [phone] Checo Diaz MD Unavailable [phone] Tere Garcia APRN, [facility] Unavailable [phone] Encounter Details Date Type Department Care Team (Late st Contact Info) Description 01/13/2025 Orders Only [facility] at [facility] [address] [place] [address] Dulce Isaacs MD [address] [place] [address] Social History Tobacco Use Types [...] drink first t eddie in the morning (EYE-MOSS BLEACHER) to steady your nerves or to get [...] Description 02/23/2025 10:30 AM EST Office Visit [facility] [address] [place] [address] Asha Briseno, BAM [address] [facility] [address] [place] [address] 02/27/2025 9:00 AM EST Office Visit [facility] [address], 2nd [place] [address] Lamar Arreaga, BAM, DNP [address] [place] [phone] documented as of this encounter Procedures Procedure Name Priority Date/Time Associated Diagnosis Comments PROSTATE SPECIFIC ANTIGEN, DIAGNOSTIC, SERUM Routine 01/13/2025 7:32 PM EDT documented in this encounter Results * Prostate Specific Antigen, Diagnostic, Serum (01/13/2025 7:32 PM EDT) External Prostate Specific Antigen (PSA) 0.892 0.000 - 4.100 ng/mL 01/13/2025 7:56 PM EDT [facility] Comment: This test was performed using Arianna e801 Electrochemiluminescent method. The test method is based on WHO-standardized calibration. Values obtained from different assay methods or manufacturers may not be comparable. 01/13/2025 7:32 PM EDT 01/13/2025 7:32 PM EDT us Dulce Isaacs MD LAB BLOOD ORDERABLES Final Resu lt Performing Organization Address City/State/[facility] Co de Phone Number [facility] [address] [place] [address], documented in this encounter Visit Diagnoses Not [...] documented as of this encounter Care Teams Mysql Dba Relationship Specialty Start Date End Date Dulce Isaacs MD [address] [place] [address] PCP - General 01/08/22 Adwoa Oakes MD [address] [facility] [address] [place] [address] Medical Oncologist Hematology and Oncology 06/30/23 Checo Diaz MD [address] [place] [phone] Consulting Physician Urology 08/17/23 Tere Garcia, MAITRE D, DNP [address] [address] Nurse Practitioner Urology 02/17/24 documented as of this encounter
--- OUTSIDE RECORDS SUMMARY | 2025-01-27 13:13 | XMS_ITS | Encounter Summary ---
Author Organization [facility] Address [address] [place] [address] Care Team Providers Care Milk Drier Name Role Phone Dulce Isaacs MD Primary Care Provider [phone] Encounter Details Date Type Department Care Team (Late st Contact Info) Description 01/06/2025 Orders Only [facility] - Urology [address] [address] Greg Baldwin MD [address] [place] [address], [address] [address] Recurrent urinary tract infection (Primary Dx) Social History Tobacco Use Types Packs/Day Years [...] Telemedicine [facility] [address] [id number] Greg Baldwin MD [address] [place] [address], [address] [place] [address] 03/23/2025 11:00 AM EST External Surgery [facility] [address] [address] Greg Baldwin MD [address] [facility], [address] [place] [phone] 04/11/2025 11:30 AM EST Office Visit [facility] [address] [address] Jackeline Fernando, TRIMMER MACHINE OPERATOR [address] [address] documented as of this encounter Visit Diagnoses Diagnosis Recurrent urinary tract infection- Primary documented in this encounter Care Teams Milk Drier Relationship Specialty Start Date End Date Dulce Isaacs MD [address] [facility] [address] [place] [address] PCP - General Family Medicine 04/21/24 documented as of this encounter
--- OUTSIDE RECORDS SUMMARY | 2025-01-27 13:13 | XMS_ITS | Encounter Summary ---
Author Organization [facility] Address [address] [place] [address] Care Team Providers Care Manager Country Name Role Phone Dulce Isaacs MD Primary Care Provider [phone] Reason for Referral * Imaging (Routine) - Pending Review Specialty Diagnoses / Procedures Referred By Contac t Referred To Contact Radiology Diagnoses Bulbous urethral stricture, male, not otherwise specified Procedures [place] voiding cystourethrogram Greg Baldwin MD [address] [place] [address], [address] [place] [phone] Phone: tel: fax: Referral ID Status Reason Start Date Expiration Date V isits Requested Visits Authorized [id number] Pending Review 02/27/2025 03/29/2026 1 1 Encounter Details Date Type Department Care Team (Late st Contact Info) Description 01/27/2025 Orders Only [facility] [address] [facility] [address] [place] [address] Greg Baldwin MD [address] [place] [address], [address] [place] [address] Bulbous urethral stricture, male, not otherwise specified (Primary Dx); Urinary tract infection, not otherwise specified Social History Tobacco Use Types Packs/Day Years [...] EST Telemedicine [facility] [address] [address] Greg Baldwin MD [address] [place] [address], [address] [address] 03/23/2025 11:00 AM EST External Surgery [facility] [address] [address] Greg Baldwin MD [address] [place] [address] 04/11/2025 11:30 AM EST Office Visit [facility] [address] [address] Jackeline Fernando, BAR CATCHER [address] [address] Scheduled Orders Name Type Priority Associated Diagnoses Orde r Schedule FL voiding cystourethrogram Imaging Routine Bulbous urethral stricture, male, not otherwise specified Expected: 02/27/2025 (Approximate), Expires: 01/27/2026 CBC and differential Lab Routine Bulbous urethral stricture, male, not otherwise specified Expected: 01/27/2025, Expires: 01/27/2026 Comprehensive metabolic panel Lab Routine Bulbous urethral stricture, male, not otherwise specified Expected: 01/27/2025, Expires: 01/27/2026 Urine culture Microbiology Routine Bulbous urethral stricture, male, not otherwise specified Urinary tract infection, not otherwise specified Expected: 01/27/2025, Expires: 01/27/2026 documented as of this encounter Visit Diagnoses Diagnosis Bulbous urethral stricture, male, not otherwise specified- Primary Urinary tract infection, not otherwise specified documented in this encounter Care Teams Manager Country Relationship Specialty Start Date End Date Dulce Isaacs MD [address] [facility] [address] [place] [address] PCP - General Family Medicine 04/21/24 documented as of this encounter
--- OUTSIDE RECORDS SUMMARY | 2025-01-27 13:13 | XMS_ITS | Clinical Summary ---
Author Organization [facility] Address [address] [facility] [address] [place] [address] Care Team Providers Care Process Safety Engineer Name Role Phone Dulce Isaacs MD Primary Care Provider [phone] Allergies Active Allergy Reactions Criticality Noted Date Comments Lisinopril Cough Low 11/25/2022 Statins Other Low 09/08/2022 Medications PEG 3350 (Glycolax, Miralax) 4 gram packet Take 17 g every day by oral route. Active alfuzosin (Uroxatral) 10 MG 24 hr tablet Take 1 tablet by mouth 1 (one) time each day. Active amoxicillin-clavul anate (Augmentin) 875-125 MG tablet TAKE 1 TABLET BY MOUTH EVERY 12 HOURS FOR 7 DAYS 06/14/19 25 Active cefdinir (Omnicef) 300 MG capsule TAKE 1 CAPSULE BY MOUTH EVERY 12 HOURS FOR 7 DAYS 09/28/19 24 Active ciprofloxacin (Cipro) 500 MG tablet TAKE 1 TABLET BY MOUTH EVERY 12 HOURS FOR 7 DAYS 04/08/19 25 Active doxycycline (Vibramycin) 100 MG capsule TAKE 1 CAPSULE BY MOUTH TWICE DAILY WITH AT LEAST 8 OZ OF WATER. DO NOT LIE DOWN FOR 30 MINUTES AFTER TAKING 02/17/20 24 Active ezetimibe (Zetia) 10 MG tablet Take 1 tablet by mouth 1 (one) time each day. 07/13/19 25 Active fosfomycin (Monurol) 3 g packet TAKE 3 GRAMS BY MOUTH ONCE WEEKLY 05/31/19 25 Active hydrOXYzine HCl (Atarax) 25 MG tablet TAKE 1 TABLET BY MOUTH EVERY DAY NEEDED FOR SLEEP 01/11/20 24 Active losartan (Cozaar) 25 MG tablet Take 25 mg by mouth. Active metFORMIN XR (Glucophage-XR) 500 MG 24 hr tablet Take 1 tablet by mouth 1 (one) time each day. 02/24/20 24 Active methenamine hippurate (Hiprex) 1 g tablet Take 1 g by mouth 2 (two) times a day. 01/20/20 24 Active omeprazole (PriLOSEC) [address] capsule Take 1 tablet by mouth 1 (one) time each day. 01/18/19 89 Active ondansetron ODT (Zofran-ODT) 8 MG disintegrating tablet DISSOLVE 1 TABLET ON THE TONGUE THREE TIMES DAILY FOR 5 DAYS NEEDED Active phenazopyridine (Pyridium) 200 MG tablet TAKE 1 TABLET BY MOUTH THREE TIMES DAILY AFTER MEALS FOR 2 DAYS 06/10/19 25 Active Plecanatide (Trulance) 3 MG tablet Take 1 tablet every day by oral route. 04/27/19 25 Active simvastatin (Zocor) 10 MG tablet Take 1 tablet by mouth 1 (one) time each day. Active sulfamethoxazole-t rimethoprim (Bactrim DS) 800-160 MG tablet Take 1 tablet by mouth 2 (two) times a day. for 7 days 12/31/19 24 Active tamsulosin (Flomax) 0.4 MG 24 hr capsule Take 1 capsule every day by oral route. 05/25/19 25 Active solifenacin (VESIcare) 5 MG tabletIndications: Spasm of urinary bladder,Overactive bladder Take 1 tablet by mouth in the evening for 90 days. Swallow tablet whole; do not crush, chew, or split. 90 tablet 01/12/20 25 026 Active Trospium Chloride ER 60 MG capsule sustained-release 24 hr Take 1 capsule by mouth 1 (one) time each day. 07/27/19 25 025 Discontinued cephalexin (Keflex) 500 MG capsuleIndications :Recurrent urinary tract infection Take 1 capsule by mouth in the morning and 1 capsule in the evening. Do all this for 10 days. 20 capsule 01/07/20 25 025 Encounters Date Type Department Care Team Description 01/27/2025 Orders Only [facility]rology [address] [place] [address] Greg Baldwin MD Bulbous urethral stricture, male, not otherwise specified (Primary Dx); Urinary tract infection, not otherwise specified 01/24/2025 7:30 AM EDT External Surgery [facility] [address] [address] Greg Baldwin MD Bulbous urethral stricture, male, not otherwise specified (Primary Dx); Lower urinary tract symptoms 01/24/2025 Telephone [facility] [address] [place] [address] [address] [place] [address] Greg Baldwin MD 01/23/2025 Telephone [facility] [address] [address] Greg Baldwin MD 01/11/2025 Orders Only [facility] [address] [address] Greg Baldwin MD Spasm of urinary bladder (Primary Dx); Overactive bladder 01/06/2025 Orders Only [facility] [address] [address] Greg Baldwin MD Recurrent urinary tract infection (Primary Dx) 01/06/2025 Telephone [facility] [address] [address] Greg Baldwin MD 01/03/2025 Telephone [facility] [address] [place] [phone] Greg Baldwin MD 12/22/2024 Telephone [facility] [address] [place] [address], [address] [place] [address] Greg Baldwin MD 12/21/2024 Telephone [facility] [address] [address] Saurabh Givens MD 12/13/2024 7:30 AM EDT External Surgery [facility] [address] [address] Greg Baldwin MD 11/30/2024 Telephone [facility] [address] [place] [address], [address]rd [place] [address] Greg Baldwin MD from Last 3 Months Family History Medical History Relation Name Comments Cancer Father Heart disease Father Hypertension Father Cancer Mother Heart disease Mother Hypertension Mother Relation Name Status Comments Father Mother Social History Tobacco Use Types Packs/Day Years Used Date Smoking Tobacco: Former Cigarettes 2 22 1 976 - 1997 Smokeless Tobacco: Never Tobacco Cessation:Counseling Given: Not [...] PM EST Telemedicine [facility]rology [address] [place] [address] Greg Baldwin MD [address] [place] [phone] 03/23/2025 11:00 AM EST External Surgery [facility] [address] [place] [address] Greg Baldwin MD [address] [place] [phone] 04/11/2025 11:30 AM EST Office Visit [facility] [address] [address] Jackeline Fernando, PROGRAMMING ENGINEER [address] [facility] [address] [place] [address] Health Maintenance Due Date Last Done Comments CT Colonography 1955 Colonoscopy 1955 Colorectal Cancer Screening 1955 FIT-DNA (Cologuard) 1955 FIT 1955 FOBT 1955 Medicare Annual Wellness (AWV) 1955 Sigmoidoscopy 1955 Hepatitis B Screening 1974 DTaP/Tdap/Td Vaccines (1 - Tdap) 12/18/1975 Pneumococcal Vaccine: 50+ Years (1 of 2 - PCV) 12/18/1975 Zoster Vaccines (1 of 2) 2006 Depression Risk Screening 04/06/2024 Fall Risk Screening 04/06/2024 SDOH Screening 04/06/2024 COVID-19 Vaccine ( season) 2024 03/18/2021, 07/30/2020, 07/02/2020 Diabetes Screening 01/14/2028 01/13/2025, 1 , 11/11/2024, Additional history exists Lipid Panel 01/13/2030 01/13/2025, 07/11/2024 Hepatitis C Screening Completed 01/11/2024 Influenza Vaccine Completed 01/13/2025, , 01/12/2023, Additional history exists HIB Vaccines Aged Out No longer eligi [...] Procedure Name Priority Date/Time Associated Diagnosis Comments URINE CULTURE STAT 12/13/2024 8:22 AM EDT CMP COMPREHENSIVE METABOLIC PANEL Routine 11/11/2024 2:16 PM EDT CBC NO DIFF (HEMOGRAM) Routine 2:16 PM EDT URINE CULTURE Routine 11/11/2024 2:14 PM EDT from Last 3 Months Results * Urine culture (12/13/2024 8:22 AM EDT) Only the most recent of2 resultswithin the time period is included. Other 12/13/2024 8:22 AM EDT 12/13/2024 10:34 AM EDT [facility] - 12/14/2024 11:20 AM EDT Patient: KHUSHBOO MICHAEL : 1955 Sex: Male Microbiology - Bacteriology PROCEDURE: Culture Urine [R1] COLLECTED DATE/TIME: 12/13/2024 08:22 EDT SOURCE: U Suprapubic START DATE/TIME: 12/13/2024 10:35 EDT BODY SITE: ORDERING PHYSICIAN GREG BALDWIN MD- FREE TEXT SOURCE: URO FINAL REPORTS Final Report [] Verified Date/Time: 12/14/2024 11:20 EDT No clinically significant growth Performing Locations R1: This test was performed at: [facility], Pathology Department, [address] [place] [address], [place], [address]- , [place], [place] Greg Baldwin MD LAB MICROBIOLOGY - GENERAL ORDERABLES Final Result [facility] [address] [place] [address], [place] * CBC (11/11/2024 2:16 PM EDT) WBC 7.3 4.0 - 10.8 x10(3)/ul 11/11/2024 2:31 PM EDT [facility]e Coag UA SS RBC 4.59 4.37 - 5.74 x10(6)/ul 11/11/2024 2:31 PM EDT [facility] SS HGB 13.8 13.0 - 17.5 Gram/dL 11/11/2024 2:31 PM EDT [facility] SS Hematocrit 40.3 38.0 - 51.0 % 11/11/2024 2:31 PM EDT [facility] SS MCV 88.0 79.0 - 92.2 fL 11/11/2024 2:31 PM EDT [facility] UA SS MCH 30.1 25.6 - 32.2 pg 11/11/2024 2:31 PM EDT [facility] Heme Coag UA SS MCHC 34.2 32.3 - 36.5 Gram/dL 11/11/2024 2:31 PM EDT [facility] Heme Coag UA SS RDW 13.2 11.0 - 15.5 % 11/11/2024 2:31 PM EDT [facility] Heme Coag UA SS Platelets 284 140 - 420 x10(3)/ul 11/11/2024 2:31 PM EDT [facility] Heme Coag UA SS MPV 8.7 6.5 - 12.0 fL 11/11/2024 2:31 PM EDT [facility] Heme Coag UA SS Blood Venous Draw / Unknown 11/11/2024 2:16 PM EDT 11/11/2024 2:25 PM EDT [facility] - 11/11/2024 2:31 PM EDT Performed by [facility] [address] [place] [address] Greg Baldwin MD LAB BLOOD ORDERABLES Final Result [facility] [address] [place] [address], [facility] Heme Coag UA SS Pathology Department [address] [place] [address] * (ABNORMAL) Comprehensive metabolic panel (11/11/2024 2:16 PM EDT) [facility] Sodium 137 136 - 145 mmol/L 11/11/2024 2:53 PM EDT [facility] CH Remisol 2.0 SS Potassium 4.0 3.5 - 5.1 mmol/L 11/11/2024 2:53 PM EDT [facility] CH Remisol 2.0 SS Chloride 104 98 - 110 mmol/L 11/11/2024 2:53 PM EDT [facility] CH Remisol 2.0 SS CO2 26 21 - 31 mmol/L 11/11/2024 2:53 PM EDT [facility] CH Remisol 2.0 SS Anion Gap 7.0 2.0 - 11.0 11/11/2024 2:53 PM EDT [facility] CH Remisol 2.0 SS Calcium 9.3 8.6 - 10.2 mg/dL 11/11/2024 2:53 PM EDT [facility] CH Remisol 2.0 SS Glucose 94 74 - 109 mg/dL 11/11/2024 2:53 PM EDT [facility] CH Remisol 2.0 SS BUN 12 7 - 25 mg/dL 11/11/2024 2:53 PM EDT [facility] CH Remisol 2.0 SS Creatinine 1.31(H) 0.70 - 1.30 mg/dL 11/11/2024 2:53 PM EDT L CH Remisol 2.0 SS BUN/Creatinine Ratio 9.2 6.0 - 22.0 11/11/2024 2:53 PM EDT [facility] CH Remisol 2.0 SS Albumin 4.8 3.5 - 5.2 Gram/dL 11/11/2024 2:53 PM EDT [facility] CH Remisol 2.0 SS Total Protein 7.5 6.4 - 8.9 Gram/dL 11/11/2024 2:53 PM EDT L CH Remisol 2.0 SS A/G Ratio 1.8 1.0 - 2.5 11/11/2024 2:53 PM EDT L CH Remisol 2.0 SS Alkaline Phosphatase 71 34 - 104 Units/Lite r 11/11/2024 2:53 PM EDT L CH Remisol 2.0 SS ALT (SGPT) 35(H) <=32 Units/Lite r 11/11/2024 2:53 PM EDT L CH Remisol 2.0 SS AST 25 13 - 39 Units/Lite r 11/11/2024 2:53 PM EDT [facility] CH Remisol 2.0 SS Total Bilirubin 0.5 0.3 - 1.0 mg/dL 11/11/2024 2:53 PM EDT [facility] CH Remisol 2.0 SS Globulin, Total 2.7 2.0 - 3.5 Gram/dL 11/11/2024 2:53 PM EDT [facility] CH Remisol 2.0 SS EGFR 60 >=60 mL/min/1.7 3m2 11/11/2024 2:53 PM EDT [facility] CH Remisol 2.0 SS Comment:eGFR calculation per formed using the CKD-EPI 2020 equation (race variable excluded) Blood Venous Draw / Unknown 11/11/2024 2:16 PM EDT 11/11/2024 2:25 PM EDT [facility] - 11/11/2024 2:53 [place] [address] Greg Baldwin MD LAB BLOOD ORDERABLES Final Result [facility] [address] [place] [address], [facility] CH Remisol 2.0 SS Pathology Department [address] [place] [address] from Last 3 Months Insurance MEDICARE A[employer] Care Teams Process Safety Engineer Relationship Specialty Start Date End Date Dulce Isaacs MD [address] [facility] [address] [place] [address] PCP - General Family Medicine 04/21/24
--- OUTSIDE RECORDS SUMMARY | 2025-01-27 13:13 | XMS_ITS | Encounter Summary ---
Author Organization [facility] Address [address] [place] [address] Care Team Providers Care Metal Sander And Finisher Name Role Phone Dulce Isaacs MD Primary Care Provider [phone] Adwoa Oakes MD Unavailable [phone] Checo Diaz MD Unavailable [phone] Tere Garcia APRN, DNP Unavailable [phone] Reason for Visit * Reason Comments Med Refill Encounter Details Date Type Department Care Team (Late st Contact Info) Description 08/15/2024 Refill [place] [facility] [address], [address]nd [place] [address] Tere Garcia APRN, DNP [address] [place] [address] Social History Tobacco Use Types [...] drink first t eddie in the morning (EYE-DOUGHNUT DOUGH MIXER) to steady your nerves or to get [...] Description 02/23/2025 10:30 AM EST Office Visit [facility] [address] [place] [address] Asha Briseno APRN [address] [facility] [address] [place] [phone] 02/27/2025 9:00 AM EST Office Visit [place] [facility] [address] [place] [address] Lamar Arreaga APRN, DNP [address] [place] [phone] documented as of this encounter Visit Diagnoses [...] documented as of this encounter Care Teams Metal Sander And Finisher Relationship Specialty Start Date End Date Dulce Isaacs MD [address] [facility] [place], [place] [id number] PCP - General 01/08/22 Adwoa Oakes MD [address] [place] [address] Medical Oncologist Hematology and Oncology 06/30/23 Checo Diaz MD [address] [address] Consulting Physician Urology 08/17/23 Tere Garcia, BAM, DNP [address] [address] Nurse Practitioner Urology 02/17/24 documented as of this encounter
--- OUTSIDE RECORDS SUMMARY | 2025-01-27 13:13 | XMS_ITS | Encounter Summary ---
Author Organization [facility] Address [address] [place] [address] Care Team Providers Care Bacteriology Professor Name Role Phone Dulce Isaacs MD Primary Care Provider [phone] Adwoa Oakes MD Unavailable [phone] Checo Diaz MD Unavailable [phone] Tere Garcia APRN, [facility] Unavailable [phone] Encounter Details Date Type Department Care Team (Late st Contact Info) Description 01/13/2025 Orders Only [facility] at [facility] [address] [place] [address] Dulce Isaacs MD [address] [place] [address] Social History Tobacco Use Types [...] drink first t eddie in the morning (EYE-MELTER HELPER) to steady your nerves or to get [...] Description 02/23/2025 10:30 AM EST Office Visit [facility] [address] [place] [address] Asha Briseno, BAM [address] [facility] [address] [place] [address] 02/27/2025 9:00 AM EST Office Visit [place] [facility] [address] [place] [address] Lamar Arreaga, BAM, DNP [address] [place] [phone] documented as of this encounter Procedures Procedure Name Priority Date/Time Associated Diagnosis Comments TSH Routine 01/13/2025 7:32 PM EDT documented in this encounter Results * Thyroid Stimulating Hormone, Plasma (01/13/2025 7:32 PM EDT) External Thyroid Stimulating Hormone (TSH) 1.590 0.270 - 4.200 u[IU]/mL 01/13/2025 7:56 PM EDT [facility] 01/13/2025 7:32 PM EDT 01/13/2025 7:32 PM EDT us Dulce Isaacs MD LAB BLOOD ORDERABLES Final Resu lt [facility] [address] [place] [address], documented in this encounter Visit Diagnoses Not [...] documented as of this encounter Care Teams Bacteriology Professor Relationship Specialty Start Date End Date Dulce Isaacs MD 200 [facility] [place] [address] PCP - General 01/08/22 Adwoa Oakes MD [address] [facility] [address] [place] [address] Medical Oncologist Hematology and Oncology 06/30/23 Checo Diaz MD [address] [place] [phone] Consulting Physician Urology 08/17/23 Tere Garcia, INDUSTRIAL ROBOTICS MECHANIC, DNP [address] [place] [address] Nurse Practitioner Urology 02/17/24 documented as of this encounter
--- OUTSIDE RECORDS SUMMARY | 2025-01-27 13:13 | XMS_ITS | Encounter Summary ---
Author Organization [facility] Address [address] [place] [address] Care Team Providers Care Multi Disciplined Language Analyst Name Role Phone Dulce Isaacs MD Primary Care Provider [phone] Adwoa Oakes MD Unavailable [phone] Checo Diaz MD Unavailable [phone] Tere Garcia APRN, [facility] Unavailable [phone] Encounter Details Date Type Department Care Team (Late st Contact Info) Description 01/13/2025 Orders Only [facility] [address] [place] [address] Dulce Isaacs MD [address] [place] [address] Social History Tobacco Use Types [...] drink first t eddie in the morning (EYE-TRANSMISSION CALIBRATION ENGINEER) to steady your nerves or to get [...] Description 02/23/2025 10:30 AM EST Office Visit [facility] [address] [place] [address] Asha Briseno, BAM [address] [facility] [address] [place] [address] 02/27/2025 9:00 AM EST Office Visit [facility] [address], [address] [place] [address] Lamar Arreaga, BAM, DNP [address] [place] [address] documented as of this encounter Procedures Procedure Name Priority Date/Time Associated Diagnosis Comments HEMOGLOBIN A1C Routine 01/13/2025 7:27 PM EDT documented in this encounter Results * (ABNORMAL) Hemoglobin A1c (01/13/2025 7:27 PM EDT) External Glycosylated Hemoglobin (Hgb A1C) 6.8(H) 0.0 - 5.6 % 01/13/2025 7:44 PM EDT [facility] External Estimated Average Glucose 148 mg/dL (calc) 01/13/2025 7:44 PM EDT [facility] Comment: A1c values between 5.7% to 6.4% indicate prediabetes. Results 6.5% or greater is diagnostic of diabetes. [place] [employer] (diabetes.org) 01/13/2025 7:27 PM EDT 01/13/2025 7:27 PM EDT us Dulce Isaacs MD LAB BLOOD ORDERABLES Final Resu lt Performing Organization Address City/State/[facility] Co de Phone Number [facility] [address] [place] [address], documented in this encounter Visit Diagnoses Not [...] documented as of this encounter Care Teams Multi Disciplined Language Analyst Relationship Specialty Start Date End Date Dulce Isaacs MD [address] [facility] [place] [address] PCP - General 01/08/22 Adwoa Oakes MD [address] [place] [address] Medical Oncologist Hematology and Oncology 06/30/23 Checo Diaz MD [address] [facility] [place] [address] Consulting Physician Urology 08/17/23 Tere Garcia, LOGISTICS ANALYTICS MANAGER, DNP [address] [facility] [place] [address] Nurse Practitioner Urology 02/17/24 documented as of this encounter
--- OUTSIDE RECORDS SUMMARY | 2025-01-27 13:13 | XMS_ITS | Clinical Summary ---
Author Organization [facility] Address [address] [place] [address] Care Team Providers Care Manager Pathology Name Role Phone Dulce Isaacs MD Primary Care Provider [phone] Adwoa Oakes MD Unavailable [phone] Checo Diaz MD Unavailable [phone] Tere Garcia APRN, DNP Unavailable [phone] Allergies Active Allergy Reactions Criticality Noted Date Comments Amitriptyline Other - please docum ent in the comment field Low 11/22/2024 Lisinopril Cough Low 11/25/2022 Statins Other - [...] by mouth 1 time each day. Active Coenzyme Q10 400 MG capsule Take 1 capsule by mouth. Active methenamine hippurate (Hiprex) 1 g tabletIndicatio ns:Recurrent UTI Take 0.5 tablets by mouth 2 times a day. 30 tablet 11 11/24/2024 11/25/19 26 Active methocarbamol (Robaxin) 500 MG tablet Start by taking 1 pill by mouth every night. Slowly increase to 1 pill 2x/day as needed, with a maximum of 2 pills 3x/day. 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 Repeat in 2026 Essential hypertension 12/16/2021 Mixed hyperlipidemia 12/16/2021 Type 2 diabetes mellitus without complication Overview (06/21/2024): A1c: 01/14/2023 6.5 micro: 12/16/21 <12 Feet: 01/12/2023 Eyes: 12/2021 Finger amputation, traumatic, initial encounter 06/19/2021 Nocturia 07/09/2016 Urinary urgency 07/09/2016 Benign prostatic hyperplasia with urinary obstru ction 07/04/2016 Resolved Problems Problem Noted Date Diagnosed Date Resolved Date Acute urinary tract infection 07/16/2023 12/25/2024 UTI (urinary tract infection) 12/28/2022 12/25/2024 Acute bronchitis 06/16/2022 12/25/2024 Encounters Date Type Department Care Team Description 01/13/2025 Orders Only [facility] [place] [address] [place] [address] Dulce Isaacs MD 01/13/2025 Orders Only [facility] at [address] [address] Dulce Isaacs MD 01/13/2025 Orders Only [facility] [place] [address] [place] [address] Dulce Isaacs MD 01/13/2025 Orders Only [facility] [address] [place] [address] Dulce Isaacs MD 01/13/2025 Orders Only [facility] [address] [place] [address] Dulce Isaacs MD 01/13/2025 Orders Only [facility] [address] [place] [address] Dulce Isaacs MD 01/13/2025 Orders Only [facility] [address] [place] [address] Dulce Isaacs MD 11/24/2024 8:00 AM EDT Office Visit [facility] [address] [place] [address] Lamar Arreaga APRN, DNP Recurrent UTI (Primary Dx); Retention, urine; PFD (pelvic floor dysfunction); Lower urinary tract symptoms (LUTS); Bulbous urethral stricture 11/24/2024 Orders Only External Location [address] [place] [address] Provider, External 11/24/2024 Travel 11/22/2024 3:00 PM EDT Office Visit [facility] [address] [place] [address] Asha Briseno APRN Recurrent UTI (Primary Dx) 11/22/2024 Travel 11/16/2024 Travel from Last 3 Months Immunizations Immunization Administration [...] drink first t eddie in the morning (EYE-RN INTERN) to steady your nerves or to get [...] Sign Reading Time Taken Comments Blood Pressure 143/83 11/24/2024 8:10 AM EDT Pulse 73 11/24/2024 8:04 AM EDT Temperature 36.4 C (97.6 F) 11/22/2024 2:27 PM EDT Respiratory Rate 16 11/22/2024 2:27 PM EDT Oxygen Saturation 97% 11/22/2024 2:27 PM EDT RA Inhaled Oxygen Concentration - - Weight 79.4 kg (175 lb) 11/24/2024 8:04 AM EDT Height 172.7 cm (5' 8 ) 08/17/2024 11:21 AM EDT Body Mass Index 26.61 08/17/2024 11:21 AM EDT Plan of Treatment Upcoming Encounters Date Type Department Care Team (Late st Contact Info) Description 02/23/2025 10:30 AM EST Office Visit [facility] [address] [place] [address] Asha Briseno, GAS STATION SERVICE ATTENDANT [address] [facility] [address] [place] 02/27/2025 9:00 AM EST Office Visit [facility] [address] [place] [address] Lamar Arreaga, BAM, DNP [address] [place] [address] Health Maintenance Due Date Last Done Comments [facility]-Medicare Annual Wellness (AWV) 1955 [facility]-/Child/Adol SDOH Screenings 1956 Diabetes: Dental Exam 1966 [facility]- SDOH Screenings 1974 [facility]-Adult SDOH Screenings 1974 CT Colonography 2001 Colonoscopy 2001 FIT-DNA 2001 FIT 2001 FOBT 2001 Sigmoidoscopy 2001 [facility]-Colorectal Cancer Screening 2001 [facility]-RSV Vaccine: 60+ Years or (1 - Risk 60-74 years 1-dose series) 2016 [facility]-Abdominal Aortic Aneurysm (AAA) Screening 2021 [id number] Vaccine ( season) 2024 03/18/2021, 07/30/2020, 07/02/2020 [facility]-Influenza Vaccine (#1) 12/05/202402/23, 01/12/2023, 12/16/2021, Additional history exists [facility]-Diabetes: Hemoglobin A1C 07/13/202501/2025, 07/11/2024, 01/11/2024 [facility]-Depression Screening 08/17/2025 08/17/2024, 08/04 [facility]-DTaP,Tdap,and Td Vaccines (2 - Td or Tdap) 06/08/2031 06/07/2021 [facility]-Pneumococcal Vaccine: 50+ Years Completed 12/16/2021 [facility]-Zoster Vaccines Completed 02/25/2023, [facility]-Hepatitis C Screening Completed 01/11/2024, [facility]-Obesity Intervention Completed 025, 11/22/2024, 08/22/2024, Additional history exists HPV Vaccines Aged Out [...] AUTO DIFFERENTIAL Routine 01/13/2025 7:47 PM EDT MICROALBUMIN/CREATININE RATIO Routine 01/13/2025 7:32 PM EDT COMPREHENSIVE METABOLIC PANEL, PLASMA Routine 01/13/2025 7:32 PM EDT LIPID PROFILE, PLASMA Routine 01/13/2025 7:32 PM EDT TSH Routine 01/13/2025 7:32 PM EDT PROSTATE SPECIFIC ANTIGEN, DIAGNOSTIC, SERUM Routine 01/13/2025 7:32 PM EDT HEMOGLOBIN A1C Routine 01/13/2025 7:27 PM EDT UROLOGY UDS WITH BASE PERFORMABLE CHARGES Routine 11/24/2024 8:43 AM EDT Retention, urine CT COMPLEX CYSTOMETROGRAM W/VOID PRESS&URETHRAL PROFILE Routine 11/24/2024 8:43 AM EDT Retention, urine INJECTION FOR BLADDER XRAY WITHOUT VOIDING Routine 11/24/2024 8:43 AM EDT Retention, urine POCT URINALYSIS DIPSTICK Routine 11/24/2024 8:05 AM EDT POC ULTRASOUND 11/24/2024 HEPATITIS C ANTIBODY W/REFLEX TO HCV QUANT PCR Routine 01/11/2024 5:06 PM EDT from Last 3 Months or Most Recently Relevant to Health Maintenance Results * (ABNORMAL) CBC and Differential (01/13/2025 7:47 PM EDT) External WBC 6.6 3.8 - 10.8 10*3/uL 01/13/2025 8:26 PM EDT [facility] External Red Blood Cell (RBC) 4.32 4.20 - 5.80 10*6/uL 01/13/2025 8:26 PM EDT [facility] External Hemoglobin 13.1(L) 14.0 - 18.0 g/dL 01/13/2025 8:26 PM EDT [facility] External Hematocrit 38.7(L) 40.0 - 52.0 % 01/13/2025 8:26 PM EDT [facility] External MCV 90 80 - 100 fL 01/13/2025 8:26 PM EDT [facility] External MCH 30 26 - 35 pg 01/13/2025 8:26 PM EDT [facility] External MCHC 34 32 - 36 g/dL 01/13/2025 8:26 PM EDT [facility] External RDW 13.0 11.0 - 15.0 % 01/13/2025 8:26 PM EDT [facility] External Mean Platelet Volume 9.2 6.2 - 10.5 fL 01/13/2025 8:26 PM EDT [facility] External Platelet Count (Plt) 319 150 - 400 10*3/uL 01/13/2025 8:26 PM EDT [facility] External Neutrophil# 3.9 1.6 - 8.4 10*3/uL 01/13/2025 8:26 PM EDT [facility] External Lymphocyte# 2.0 0.4 - 5.1 10*3/uL 01/13/2025 8:26 PM EDT [facility] External Absolute Monocyte (Abs Laurens) 0.5 0.0 - 1.2 10*3/uL 01/13/2025 8:26 PM EDT [facility] External Eosinophils# 0.1 0.0 - 0.8 10*3/uL 01/13/2025 8:26 PM EDT [facility] External Baso# 0.1 0.0 - 0.3 10*3/uL 01/13/2025 8:26 PM EDT [facility] External Neutrophils % 58.9 42.0 - 78.0 % 01/13/2025 8:26 PM EDT [facility] External Lymphocyte % 30.6 11.0 - 47.0 % 01/13/2025 8:26 PM EDT [facility] External Monocyte % 8.0 0.0 - 11.0 % 01/13/2025 8:26 PM EDT [facility] External Eosinophil% 1.6 0.0 - 7.0 % 01/13/2025 8:26 PM EDT [facility] External Basophil % 0.9 0.0 - 3.0 % 01/13/2025 8:26 PM EDT [facility] External Nucleated RBC%-Auto 0.0 0.0 - 0.9 % 01/13/2025 8:26 PM EDT [facility] External Nucleated RBC Absolute 0.00 Not Estab. 10*3/uL 01/13/2025 8:26 PM EDT [facility] 01/13/2025 7:47 PM EDT 01/13/2025 7:47 PM EDT us Dulce Isaacs MD LAB BLOOD ORDERABLES Final Resu lt Performing Organization Address [facility] de Phone Number [facility] [address] [place] [address], [place] [phone] * Microalbumin/Creatinine Ratio (01/13/2025 7:32 PM EDT) External Microalbumin Urine Conc 13 0 - 19 mg/L 01/13/2025 9:20 PM EDT [facility] External Creatinine,Ur Random 66 mg/dL 01/13/2025 9:20 PM EDT [facility] Comment:NO NORMAL RANGE ES TABLISHED FOR RANDOM URINE. External Microalb/Creat Ratio 20 0 - 29 mcg/mg Creat 01/13/2025 9:20 PM EDT [facility] 01/13/2025 7:32 PM EDT 01/13/2025 8:38 PM EDT us Dulce Isaacs MD LAB URINE ORDERABLES Final Resu lt Performing Organization Address [facility] Co de Phone Number [facility] [address] [place] [address], [place] [phone] * Prostate Specific Antigen, Diagnostic, Serum (01/13/2025 7:32 PM EDT) External Prostate Specific Antigen (PSA) 0.892 0.000 - 4.100 ng/mL 01/13/2025 7:56 PM EDT [facility] Comment: This test was performed using Arianna e801 Electrochemiluminescent method. The test method is based on WHO-standardized calibration. Values obtained from different assay methods or manufacturers may not be comparable. 01/13/2025 7:32 PM EDT 01/13/2025 7:32 PM EDT us Dulce Isaacs MD LAB BLOOD ORDERABLES Final Resu lt Performing Organization Address [facility]/ZIP Co de Phone Number [facility] [address] [place] [address], * Thyroid Stimulating Hormone, Plasma (01/13/2025 7:32 PM EDT) Pathologist [facility] External Thyroid Stimulating Hormone (TSH) 1.590 0.270 - 4.200 u[IU]/mL 01/13/2025 7:56 PM EDT [facility] 01/13/2025 7:32 PM EDT 01/13/2025 7:32 PM EDT us Dulce Isaacs MD LAB BLOOD ORDERABLES Final Resu lt Performing Organization Address [facility] Co de Phone Number [facility] [address] [place] [address], * (ABNORMAL) Lipid Profile, Plasma (01/13/2025 7:32 PM EDT) Pathologist [facility] External HDL Cholesterol 43 mg/dL 01/13/2025 8:11 PM EDT [facility] Comment: NORMAL RANGE FEMALE >49 MALE >39 NOTE: NEW NORMAL RANGE External Triglycerides 163(H) 0 - 149 mg/dL 01/13/2025 8:11 PM EDT [facility] Comment: TRIGLYCERIDE RANGES NORMAL: < 150 BORDERLINE HIGH: 150 - 199 HIGH: 200 - 499 VERY HIGH: > OR = 500 External Cholesterol 244(H) 0 - 199 mg/dL 01/13/2025 8:11 PM EDT [facility] Comment: CHOLESTEROL (TOTAL) RANGES DESIRABLE: < 200 BORDERLINE: 200 - 239 HIGHER RISK: > 239 External LDL Cholesterol 168(H) 0 - 99 mg/dL (calc) 01/13/2025 8:11 PM EDT [facility] Comment: LDL CHOLESTEROL RANGES OPTIMAL: < 100 NEAR/ABOVE OPTIMAL: 100 - 129 BORDERLINE HIGH: 130 - 159 HIGH: 160 - 189 VERY HIGH: > OR = 190 External Chol/HDL Ratio 5.7 mg/dL 01/13/2025 8:11 PM EDT [facility] Comment:NO NORMAL RANGE ESTA BLISHED FOR CHOLESTEROL/HDL RATIO(CALCULATED). EXTERNAL DIRECT,LDL CHOLESTEROL 168(H) 0 - 99 01/13/2025 8:11 PM EDT [facility] 01/13/2025 7:32 PM EDT 01/13/2025 7:32 PM EDT us Dulce Isaacs MD LAB BLOOD ORDERABLES Final Resu lt [facility] [address] [place] [address], * Comprehensive Metabolic Panel, Plasma (01/13/2025 7:32 PM EDT) External Glucose 96 74 - 100 mg/dL 01/13/2025 8:11 PM EDT [facility] External BUN 13 6 - 20 mg/dL 01/13/2025 8:11 PM EDT [facility] External Creatinine Blood 1.13 0.70 - 1.20 mg/dL 01/13/2025 8:11 PM EDT [facility] External BUN/Creat Ratio 12 10 - 20 (calc) 01/13/2025 8:11 PM EDT [facility] External Sodium 136 136 - 145 mmol/L 01/13/2025 8:11 PM EDT [facility] External Potassium 4.5 3.4 - 5.0 mmol/L 01/13/2025 8:11 PM EDT [facility] External Chloride 100 98 - 107 mmol/L 01/13/2025 8:11 PM EDT [facility] External Carbon Dioxide (CO2) 23 22 - 31 mmol/L 01/13/2025 8:11 PM EDT [facility] External Anion Gap (AG) 13 7 - 25 (calc) 01/13/2025 8:11 PM EDT [facility] External Calcium 9.4 8.6 - 10.2 mg/dL 01/13/2025 8:11 PM EDT [facility] External Total Protein 7.1 6.4 - 8.3 g/dL 01/13/2025 8:11 PM EDT [facility] External Albumin 4.4 3.5 - 5.2 g/dL 01/13/2025 8:11 PM EDT [facility] External Globulin 2.7 1.5 - 4.5 025 8:11 PM EDT [facility] External Albumin/Globulin Ratio 1.6 1.1 - 2.5 (calc) 01/13/2025 8:11 PM EDT [facility] External Bilirubin Total 0.3 0.1 - 1.0 mg/dL 01/13/2025 8:11 PM EDT [facility] Comment:NOTE: New reference range. External Alkaline Phosphatase 81 40 - 129 U/L 01/13/2025 8:11 PM EDT [facility] External AST (SGOT) 21 0 - 40 U/L 01/13 8:11 PM EDT [facility] External ALT (SGPT) 28 0 - 41 U/L 01/13 8:11 PM EDT [facility] External Estimated GFR 71 >=60 01/13/2025 8:11 PM EDT [facility] Comment: NOTE New calculation for GFR (CKD-EPI 2020) is formulated without race adjustment factors at the recommendation of the National Kidney Foundation and [place] [employer]ph[employer]. This calculation has not been validated in women. For pediatric patients refer to https://www.kidney.org/professionals/KDOQI/gfr_calculatorPed 01/13/2025 7:32 PM EDT 01/13/2025 7:32 PM EDT us Dulce Isaacs MD LAB BLOOD ORDERABLES Final Resu lt [facility] [address] [place] [address], * (ABNORMAL) Hemoglobin A1c (01/13/2025 7:27 PM EDT) External Glycosylated Hemoglobin (Hgb A1C) 6.8(H) 0.0 - 5.6 % 01/13/2025 7:44 PM EDT [facility] External Estimated Average Glucose 148 mg/dL (calc) 01/13/2025 7:44 PM EDT [facility] Comment: A1c values between 5.7% to 6.4% indicate prediabetes. Results 6.5% or greater is diagnostic of diabetes. [place] [employer] (diabetes.org) 01/13/2025 7:27 PM EDT 01/13/2025 7:27 PM EDT us Dulce Isaacs MD LAB BLOOD ORDERABLES Final Resu lt [facility] [address] [place] [address], * INJECTION FOR BLADDER XRAY WITHOUT VOIDING, CT COMPLEX CYSTOMETROGRAM W/VOID PRESS&URETHRAL PROFILE, UROLOGY UDS WITH BASE PERFORMABLE CHARGES (11/24/2024 8:43 AM EDT) Narrative Lamar Arreaga APRN, DNP - 11/24/2024 8:43 AM EDT Lamar Arreaga APRN, DNP 11/28/2024 11:07 AM UDS Date/Time: 11/24/2024 8:43 AM Performed by: Lamar Arreaga APRN, DNP Authorized by: Lamar Arreaga APRN, DNP [facility] Protocol: Time out called at: 11/24/2024 8:43 AM Patient identity confirmed: Verbally with patient, hospital-assigned identification number and provided demographic data Correct site/side verified and marked: yes Correct patient positioning for procedure: yes Verified correct procedure: yes Pre-procedure medications ordered/given (to include antibiotics if applicable): no Essential imaging and labs available and reviewed: yes Procedure explained and questions answered to patient or proxy's satisfaction: yes Consent obtained: Verbal and written Risks, benefits, and alternatives discussed: Yes Safety precautions reviewed?: yes Relevant documents present and verified: yes Required blood products, implants, devices, and special equipment available: no Procedure Details: CMG with UPP/voiding pressures Pelvic Examination Performed?: No Pessary Performed?: No Was bladder voided as part of this procedure?: Yes Fluoro Time (total seconds): 92 Fluoro Dose (Gy-cm2): 22.9 Position: Standing Outcome: patient tolerated procedure well with no complications Post-procedure interventions: post-procedure instructions given Lamar Arreaga GAS STATION SERVICE ATTENDANT, DNP UROLOGY ORDERABLES Final Result * POCT URINALYSIS DIPSTICK (11/24/2024 8:05 AM EDT) POCT Urine Color Yellow 11/24/2024 8:07 AM EDT [facility] POCT Urine Clarity Clear 11/24/2024 8:07 AM EDT [facility] POCT Urine Glucose Negative Negative mg/dL 11/24/2024 8:07 AM EDT [facility] POCT Urine Bilirubin Negative Negative mg/dL 11/24/2024 8:07 AM EDT [facility] POCT Urine Ketones Negative Negative mg/dL 11/24/2024 8:07 AM EDT [facility] POCT Urine Specific [place] <=1.005 1.005 - 1.030 11/24/2024 8:07 AM EDT [facility] POCT Urine Blood Negative Negative 11/24/2024 8:07 AM EDT [facility] POCT pH, Urine 6.0 5.0 - 8.0 11/24/2024 8:[address] [facility] PO[facility] Protein, Urine Negative Negative mg/dL 11/24/2024 8:07 AM EDT [facility] POCT Urobilinogen, Urine 0.2 0.2, 1.0 EU/dL 11/24/2024 8:07 AM EDT POCT Nitrite, Urine Negative Negative 11/24/2024 8:07 AM EDT [facility] POCT Urine Leukocyte Esterase Negative Negative 11/24/2024 8:07 AM EDT [facility] Urine 11/24/2024 8:05 AM EDT 11/24/2024 8:07 AM EDT us Lamar Arreaga GAS STATION SERVICE ATTENDANT, DNP LAB POINT OF CAR E TEST DOCKED DEVICE UNSOLICITED RESULTS Final Result Performing Organization Address City/[facility] Co de Phone Number [facility] [address] [place] * POC Imaging (11/24/2024) Anatomical Region Laterality Modality Pelvis Other 11/24/2024 us External Provider IMG POINT OF CARE ULTRASOUND F inal Result * Hepatitis C Antibody w/Reflex to HCV Quant PCR (01/11/2024 5:06 PM EDT) External Hepatitis C Antibody (HCV Ab) NONREACTIVE NONREACTIVE 01/11/2024 8:31 PM EDT [facility] Comment: Antibodies to HCV were not detected; does not exclude the possibility of exposure to HCV. 01/11/2024 5:06 PM EDT 01/11/2024 8:05 PM EDT us Dulce Isaacs MD LAB BLOOD ORDERABLES Final Resu lt [facility] [address] [place] [address], from Last 3 Months or Most Recently Relevant to Health Maintenance Insurance MEDICARE [facility] Advance Directives * Full Code (Latest Code Status on File) Date Activated Date Inactivated Comments 12/28/2022 5:53 PM 12/29/2022 8:37 PM Question Answer Comments Patient has decision-making capacity? Yes Care Teams Manager Pathology Relationship Specialty Start Date End Date Dulce Isaacs MD [address] [place] [address] PCP - General 01/08/22 Adwoa Oakes MD [address] [place] [address] Medical Oncologist Hematology and Oncology 06/30/23 Checo Diaz MD [address] [place] [address] Consulting Physician Urology 08/17/23 Tere Garcia, GAS STATION SERVICE ATTENDANT, DNP [address] [place] [address] Nurse Practitioner Urology 02/17/24
--- OUTSIDE RECORDS SUMMARY | 2025-01-27 13:13 | XMS_ITS | Encounter Summary ---
Author Organization [facility] Address [address] [place] [address] Care Team Providers Care Orthopedic Surgeon Name Role Phone Dulce Isaacs MD Primary Care Provider [phone] Encounter Details Date Type Department Care Team (Late st Contact Info) Description 01/23/2025 Telephone [facility] - Urology [address] [place], [place] [id number] Greg Baldwin MD [address] [place] [address], [address] [place] [address] Social History Tobacco Use Types [...] encounter Miscellaneous Notes * Telephone Encounter - Kimberly Bustamante - 01/23/2025 4:47 PM EDT Images from the original note were not included. * Telephone Encounter - Kimberly Bustamante - 01/23/2025 4:11 PM EDT Spoke with patient, as we have not received the urine culture results from last week - Dr ROLAN Mayorga. Informed Dr Baldwin documented in this encounter Plan of Treatment Upcoming Encounters Date Type Department Care Team (Late st Contact Info) Description 02/17/2025 4:00 PM EST Telemedicine [facility] - Urology [address] [address] Greg Baldwin MD [address] [place] [phone] 03/23/2025 11:00 AM EST External Surgery [facility]rology [address] [address] Greg Baldwin MD [address] [place] [phone] 04/11/2025 11:30 AM EST Office Visit [facility]rology [address] [address] Jackeline Fernando, FUR TANNER [address] [address] documented as of this encounter Visit Diagnoses Not on filedocumented in this encounter Care Teams Orthopedic Surgeon Relationship Specialty Start Date End Date Dulce Isaacs MD [address] [place] [address] PCP - General Family Medicine 04/21/24 documented as of this encounter
[2025-01-27 13:39] LABS: Hematocrit 39.1 % (42.0-52.0); Hemoglobin 13.6 g/dL (14.1-18.0); Immature Granulocytes % 0.4 %; Mean Corpuscular HGB Conc 34.8 g/dL (31.8-35.4); Mean Corpuscular Hemoglobin 30.8 pg (27.0-31.2); Mean Corpuscular Volume 88.5 fl (80-94); Nucleated Red Blood Cells % 0 %; Platelet Count 334 K/mm3 (142-424); Red Blood Count 4.42 M/mm3 (4.60-6.20); Red Cell Distribution Width-SD 39.6 fL; White Blood Count 8.5 K/mm3 (4.8-10.8)
[2025-01-27 14:18] LABS: Albumin Level 4.3 g/dl (3.5-5.0); Chloride 93 mmol/L (98-107); Sodium 126 mmol/L (136-145)
[2025-01-27 14:19] LABS: Potassium 4.4 mmoL/L (3.5-5.1)
[2025-01-27 14:21] LABS: Alanine Aminotransferase 27 U/L (12-78); Alkaline Phosphatase 87 U/L (38-126); Anion Gap 10.4 mEq/L (5-15); Aspartate Amino Transferase 29 U/L (17-59); Bilirubin,Total 0.7 mg/dl (0.2-1.3); Blood Urea Nitrogen 11 mg/dl (9-20); Carbon Dioxide 27 mmol/L (22.0-30.0); Creatinine,Serum 1.00 mg/dl (0.66-1.25); Estimated Glomerular Filt Rate 74 ml/min (>60); GFR (African American) 90 ML/MIN (>60)
[2025-01-27 14:22] LABS: Albumin/Globulin Ratio 1.6 (1.1-1.8); Calcium 8.9 mg/dl (8.4-10.2); Globulin 2.7 g/dL (1.3-3.2); Glucose 133 mg/dl (74-100); Total Protein,Serum 7.0 g/dl (6.3-8.2)
== END 2025-01-27 23:59 | disposition home or self-care (01) ==
LOC: LAB 13:11
PROVIDERS: PCP Family Medicine Addiction Medicine; Visit Provider Urology
DX: N35.912 Unspecified bulbous urethral stricture, male (principal); N39.0 Urinary tract infection, site not specified
CPT/HCPCS: 36415; 80053; 85025; 87086